=== PATIENT | female | born 1985 | race Caucasian/White ===

== ENCOUNTER 2018-06-18 12:24 | Emergency (ER) | payer MEDICAID, SELFPAY ==
[2018-06-18] VITALS (8 sets, daily range): BP systolic 103–109; BP diastolic 69–79; PULSE 67–84; RESP 13–17; TEMP 36.8; O2SAT 98–100
--- NOTE | 2018-06-18 12:47 | ED.GENADUL_ITS ---
Discharge Plan Disposition Patient Disposition: HOME Condition: Improving Discharge Details Chief Complaint: Chest Pain Clinical Impression: Pneumothorax on left Primary Care Provider: Alexey Madison ED Provider: Renzo Hamilton Home Meds and New Rx's Prescriptions: No Action No Known Home Meds RF: 0 Discharge Instructions Instructions: Spontaneous Pneumothorax (ED) Additional Instructions: Return if you develop difficulty breathing, worsening pain, or any other acute concerns. May use ibuprofen 600 mg every 8 hours as needed for pain. Follow-up with Dr. Dixon in clinic tomorrow at 2 PM for recheck. The office number is [phone] Medical Decision Making 32-year-old female states that she had the abrupt onset of left-sided chest discomfort while at rest today. She will not recent travel to [place] and [facility]. She arrives with normal vital signs, in moderate distress and anxious. Screening EKG is unremarkable. Differential diagnosis would include acute coronary syndrome, pulmonary embolism, as well as pleurisy as I question friction rub present on exam. Placed, labs obtained, patient referred for chest x-ray. Ketorolac ordered which she subsequently declined as her pain nearly completely resolved on its own. Labs reveal unremarkable troponin, d-dimer, CBC and chemistries. Chest x-ray reveals a discrete left apical pneumothorax without other findings. Case discussed with on-call surgeon, Dr Puentes who will see the patient in followup tomorrow. in clinic at 2pm. Discussed return precautions with the patient and her mother prior to discharge. Lab Data Lab results reviewed: Yes I reviewed the patient's lab results. Laboratory Results - last 24 hr 06/18/18 06/18/18 06/18/18 12:55 12:55 12:55 WBC 7.96 RBC 4.78 Hgb 14.6 Hct 43.5 MCV 91.0 MCH 30.5 MCHC 33.6 RDW 12.5 Plt Count 245 MPV 9.1 Immature Gran % 0.3 Neutrophils % 72.8 Lymphocytes % 22.1 Monocytes % 4.1 Eosinophils % 0.3 Basophils % 0.4 Absolute Neutrophils 5.80 Absolute Lymphocytes 1.76 Absolute Monocytes 0.33 Absolute Eosinophils 0.02 Absolute Basophils 0.03 D-Dimer 148 Sodium 138 Potassium 3.9 Chloride 100 Carbon Dioxide 29.2 Anion Gap 8.8 BUN 10 Creatinine 0.76 Estimated GFR/1.73 m2 >= 60.00 Glucose 115 H Calcium 9.2 Total Bilirubin 0.4 AST 21 ALT 24 Alkaline Phosphatase 63 Troponin I < 0.02 Total Protein 7.5 Albumin 4.0 ECG Data Attestation: I personally reviewed and interpreted this ECG (s) as follows: Interpretation: Normal sinus rhythm, rate of 75, QRS is narrow, no ST segment elevation present HPI General Mode of arrival: ambulatory . Date/Time Provider Initiated Documentation: 06/18/18 12:28 . Limitations to Documentation: no limitations . Information obtained by: patient and family . History of Present Illness 32 year old F presents to the emergency department with the chief complaint of Left-sided chest pain, described as moderate, Quality is described as burning, and is localized to the chest and left. Patient neck. Patient started experiencing this minute(s) and it has been other (Improving). No relieving factors improve symptom(s), Movement worsens symptoms . Patient notes denies fever/chills. Related Data Home Medications Medication Instructions Recorded Confirmed Unknown [No Known Home Meds] 02/02/18 06/18/18 Allergies Allergy/AdvReac Type Severity Reaction Status Date / Time acetaminophen Allergy Severe Hives, Unverified 06/18/18 12:34 difficulty breathing clindamycin Allergy Severe Hives and Unverified 06/18/18 12:34 diffficulty breathing lidocaine Allergy Flushed , Unverified 06/18/18 12:34 tingling General Stated Complaint: Chest Pain KAT: 2 Review of Systems Review of Systems 8 systems reviewed and otherwise negative PFSH 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 Biopsy of breast Medical History 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 Social History Smoking/Tobacco Use Status: Current every day Surgical History Biopsy of breast Social History Smoking/Tobacco Use Status: Current every day Exam Narrative Exam Narrative: GEN: awake, alert, oriented 3. Pleasant, well groomed, interactive; somewhat anxious HEAD: Normocephalic, atraumatic ENT: Mucous membranes moist, oropharynx unremarkable, External ear exam unremarkable EYES: PERRL, EOMI NECK: Full ROM, no CLARISA, no menigismus CHEST/RESP: Nontender, clear to auscultation bilateral, no wheeze/rhonchi/rales , Question friction Rub L anterior chest wall CARDIOVASCULAR: RRR, no murmur, rub roopa. 2+ Rad pulse bilateral ABDOMEN: Soft, nontender, no mass. +Bowel sounds EXT: Full ROM, no edema, no rash, no cords Neuro: Grossly normal neurologic exam, conversant, interactive. Psych: Speech fluent, thoughts congruent, affect anxious Course Vital Signs Temperature 36.8 C 06/18/18 12:32 Pulse 84 06/18/18 12:32 Respiratory Rate 15 06/18/18 12:32 Blood Pressure 109/69 06/18/18 12:32 Pulse Oximetry 100 06/18/18 12:32 Temperature 36.8 C 06/18/18 12:32 Temperature Source Temporal Artery Scan 06/18/18 12:32 Pulse 84 06/18/18 12:32 Respiratory Rate 15 06/18/18 12:32 Respiratory Effort Non-Labored 06/18/18 12:32 Blood Pressure 109/69 06/18/18 12:32 Pulse Oximetry 100 06/18/18 12:32 Oxygen Delivery Method Room Air 06/18/18 12:32 Oxygen Flow Rate 0 06/18/18 12:32 Pain Level 8 06/18/18 12:32
[2018-06-18 13:10] LABS: Abs Immature Grans 0.02 k/cumm (0.0-0.09); Absolute Basophil Count 0.03 k/cumm (0.0-0.2); Absolute Eosinophil Count 0.02 k/cumm (0.0-0.7); Absolute Lymphocyte Count 1.76 k/cumm (1.2-3.4); Absolute Monocyte Count 0.33 k/cumm (0.11-0.7); Basophils % 0.4; Eosinophils % 0.3; HCT 43.5 % (36.0-46.0); HGB 14.6 g/dL (12.0-15.5); Immature Grans % 0.3; Lymphocytes % 22.1; Mean Corp. HGB Concentration 33.6 g/dL (32.0-36.0); Mean Corpuscular Hemoglobin 30.5 pg (27.0-33.0); Mean Platelet Volume 9.1 fL (8.0-11.0); Monocytes % 4.1; Neutrophils % 72.8; Platelet Count 245 x1000/uL (130-400); RBC 4.78 m/cumm (4.00-5.20); RBC Distribution Width 12.5 % (11.7-14.6); White Blood Cell Count 7.96 k/cumm (4.4-10.8)
[2018-06-18 13:27] LABS: ALT 24 U/L (12-78); AST 21 U/L (15-37); Alkaline Phosphatase 63 U/L (46-116); Anion Gap 8.8 mmol/L (3-11); BUN 10 mg/dL (7-18); Bilirubin, Total 0.4 mg/dL (0.2-1.0); CO2 29.2 mmol/L (21.0-32.0); CREATININE 0.76 mg/dL (0.55-1.02); Calcium 9.2 mg/dL (8.5-10.1); Chloride 100 mmol/L (98-107); Glucose 115 mg/dL (70-100); Potassium 3.9 mmol/L (3.5-5.1); Sodium 138 mmol/L (136-145); Total Protein 7.5 g/dL (6.4-8.2); Troponin I < 0.02 ng/mL (0.00-0.06)
--- NOTE | 2018-06-18 13:31 | DI.RAD_ITS ---
SYMPTOMS/DIAGNOSIS: LT CHEST PAIN PA AND LATERAL CHEST: The cardiac and mediastinal contours have a normal appearance. The lungs are well inflated and clear. No infiltrate or effusion is seen. There is a tiny left apical pneumothorax. No rib or spine fracture is seen. IMPRESSION: Tiny left apical pneumothorax.
[2018-06-18 13:41] LABS: D-Dimer 148 ng/mlFEU (<500)
[2018-06-18] MEDS: Normal Saline 1,000 ML 1000 ML IV (13:50)
== END 2018-06-18 15:18 | disposition home or self-care (01) ==
LOC: ER 14:31
PROVIDERS: Emergency Provider Emergency Medicine; PCP General Practice
DX: J93.83 Other pneumothorax (principal)
CPT/HCPCS: 36415; 80053; 93005; 96365; 99285; 71046; 84484; 85025; 85379; 93010; 99284

== ENCOUNTER 2018-11-22 08:42 | Emergency (ER) | payer MEDICAID, SELFPAY ==
[2018-11-22 08:49] VITALS: BP 115/76; PULSE 87; RESP 20; TEMP 36.8; O2SAT 99
--- NOTE | 2018-11-22 09:29 | ED.GENADUL_ITS ---
Discharge Plan Disposition Patient Disposition: HOME Condition: Improving Discharge Details Chief Complaint: EyeProblem Clinical Impression: Abrasion, corneal Primary Care Provider: Alexey Madison ED Provider: Vira Sotomayor Home Meds and New Rx's Prescriptions: No Action No Known Home Meds RF: 0 Discharge Instructions Instructions: Erythromycin (Into the eye), Corneal Abrasion (ED) Additional Instructions: Apply erythromycin eye ointment to bilateral eyes 4 times daily. You have an appointment with [facility] tomorrow morning at 10:40AM in [facility]. If you develop fever/chills, increased pain, change in vision or other new/worsening symptoms please seek care urgently once again Referrals: Alexey Madison MD [Primary Care Provider] - Medical Decision Making This is a pleasant 33-year-old female presenting today with bilateral eye pain. She reports that symptoms began yesterday. Patient does typically wear contacts. Currently wearing corrective lenses. States she is been tearing, having eye burning. Was concerned that she may have a foreign body in the eye but does not know of any alston or exposures. 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 Typically changed her contacts monthly. Is been set. She denies any fevers or chills. States she has had tearing but no visual changes with her corrective lenses on. Does not have pain with movement of the eye. No headaches. On exam, patient's eyes are slightly injected. Tetracaine was for discomfort, patient reports feeling much improved. On exam, she does have a small punctate areas of uptake. 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 Advised to continue to abstain from a contact will be discharged home with erythromycin ointment and follow-up with [facility] care. Patient given strict return precautions. All other questions and concerns were addressed and she is in agreement with this plan. HPI General Mode of arrival: ambulatory . Date/Time Provider Initiated Documentation: 11/22/18 09:12 . Limitations to Documentation: no limitations . Information obtained by: patient and RN notes reviewed . History of Present Illness 33 year old F presents to the emergency department with the chief complaint of bilateral eye pain, described as severe, with intensity rated at 10. Quality is described as burning, and is localized to the eyes. Patient reports no radiation. Patient started experiencing this day(s) (1) and it has been constant. No relieving factors improve symptom(s), Other factors that worsen symptoms (wearing contacts) . Patient notes no other symptoms.. Patient did receive the following treatments prior to arrival, none Related Data Home Medications Medication Instructions Recorded Confirmed Unknown [No Known Home Meds] 02/02/18 11/20/18 Allergies Allergy/AdvReac Type Severity Reaction Status Date / Time acetaminophen Allergy Severe Hives, Unverified 11/20/18 14:02 difficulty breathing clindamycin Allergy Severe Hives and Unverified 11/20/18 14:02 diffficulty breathing lidocaine Allergy Flushed , Unverified 11/20/18 14:02 tingling General Stated Complaint: EyeProblem KAT: 4 Review of Systems Constitutional Reports as per HPI, Denies chills, Denies fever(s) and Denies headache(s) Eyes Reports as per HPI, Denies change in vision, Denies decreased night vision, Denies diplopia, Reports eye discharge (tearing), Denies dry eyes, Reports irritation, Reports itchy eyes, Denies loss of peripheral vision, Denies loss of vision, Reports eye pain, Reports requires corrective lenses, Denies seeing flashes, Reports photophobia, Denies spots in vision and Denies tunnel vision ENT Reports as per HPI and Denies headache(s) Cardiovascular Reports as per HPI, Denies chest pain and Denies dyspnea Respiratory Reports as per HPI and Denies dyspnea Gastrointestinal Reports as per HPI, Denies abdominal pain, Denies change in bowel habits, Denies nausea and Denies vomiting Integumentary/Breasts Reports as per HPI and Denies rash Neurologic Reports as per HPI, Denies headache(s) and Denies loss of vision Allergic/Immunologic Reports itchy eyes [facility] Medical History Spontaneous pneumothorax (Acute) 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 Surgical History Biopsy of breast Social History Smoking/Tobacco Use Status: Current every day Alcohol Intake: current Alcohol Intake frequency: a few times a week Drug use: Never Substance use type: does not use Household members: children Housing: house Number of Children: 2 What is your relationship status?: Panel score (0-1 are the most socially isolated patients): 0 Do you feel safe in your relationship?: Yes Exam Const General: cooperative, healthy appearing, comfortable, no acute distress, well developed and well groomed Nutritional Appearance: average body habitus and well nourished Orientation: alert and awake [facility] Head: normal to inspection, normocephalic and atraumatic Ears: hearing grossly normal bilaterally, external ears normal and TM's normal bilaterally General nose exam: external nose normal and nares normal Face and sinus: normal facial exam, sinuses nontender and face symmetric Mouth: oral mucosae normal, lip normal, tongue normal, oropharynx normal and moist mucous membranes Teeth and gingiva: dentition normal Throat: posterior oropharynx normal, tonsils normal and uvula midline Eyes Visual Swann: normal visual swann by confrontation Alignment and Position: alignment normal Periorbital: periorbital findings normal Eyelids: eyelids normal Conjunctivae: conjunctival abnormality bilaterally conjunctival injection Cornea: corneas abnormal bilaterally fluorescein used and abrasion (small punctate lesions noted bilaterally consistent with areas of contacts); no contact lens present, without diffuse punctate uptake and without dendrites present and fluorescein used Pupils: PERRL and normal by confrontation EOM: EOM intact bilaterally Direct ophthalmoscopy: normal light reflex Neck Neck: normal visual inspection, full ROM, no lymphadenopathy and no meningeal signs Resp Effort & Inspection: normal respiratory effort, able to speak in complete sentences and no respiratory distress Auscultation: clear to auscultation bilaterally, no rales, no rhonchi and no wheezes Cardio Rate: regular rate Rhythm: regular rhythm Heart Sounds: S1 normal and S2 normal Skin General skin exam: no rashes or lesions noted Neuro General: alert and awake Cognition: normal cognition Speech: speech normal Gait: normal gait Psych Appearance: grossly normal and well kempt Mental Status: mental status grossly normal Speech and Movement: speech and movement normal Course Vital Signs Temperature 36.8 C 11/22/18 08:49 Pulse 87 11/22/18 08:49 Respiratory Rate 20 11/22/18 08:49 Blood Pressure 115/76 11/22/18 08:49 Pulse Oximetry 99 11/22/18 08:49 Temperature 36.8 C 11/22/18 08:49 Temperature Source Temporal Artery Scan 11/22/18 08:49 Pulse 87 11/22/18 08:49 Respiratory Rate 20 11/22/18 08:49 Respiratory Effort Non-Labored 11/22/18 08:49 Blood Pressure 115/76 11/22/18 08:49 Pulse Oximetry 99 11/22/18 08:49 Pain Level 10 11/22/18 08:49
[2018-11-22] MEDS: Fluorescein STRIPS 100/BOX 1 MG (09:34)
[2018-11-22] MEDS: Tetracaine 0.5% 4 ML BTL ×2 (09:34→09:52)
[2018-11-22] MEDS: Erythromycin Ophth Oint 3.5 GM TUBE OU (09:34)
--- NOTE | 2018-11-22 09:49 | NUR.NOTE ---
patient received tetrcaine bilateral eyes x 1 drop per PA order, then PA examined patient Nursing Note:
[2018-11-22 09:51] VITALS: BP 115/76; PULSE 87; RESP 20; TEMP 36.8; O2SAT 99
== END 2018-11-22 09:51 | disposition home or self-care (01) ==
PROVIDERS: Emergency Provider Physician Assistant; PCP General Practice
DX: S05.01XA Injury of conjunctiva and corneal abrasion without foreign body, right eye, initial encounter (principal); S05.02XA Injury of conjunctiva and corneal abrasion without foreign body, left eye, initial encounter; X58.XXXA Exposure to other specified factors, initial encounter
CPT/HCPCS: 99283

== ENCOUNTER 2018-11-23 07:59 | Outpatient (CLI) | payer MEDICAID, SELFPAY ==
--- NOTE | 2018-11-23 08:59 | DI.CT_ITS ---
SYMPTOMS/DIAGNOSIS: INTERMITTENT CHEST PAIN, H/O LT PTX, R07.89, HX DISEASE OF RESPIRATORY SYSTEM CT OF THE CHEST: Comparison is made with chest x-ray dated . Post contrast exam was performed. The heart size is normal. No pleural or pericardial effusions are seen. There is no evidence of pneumothorax. There is minimal apical thickening. There is no evidence of mass, adenopathy or pulmonary nodules. There is no evidence of bronchiectasis. There are no significant emphysematous changes or interstitial changes. The visualized portions of the upper abdomen are unremarkable. The thyroid appears normal. IMPRESSION: Minimal apical thickening, otherwise negative.
[2018-11-23] MEDS: Omnipaque 350 MG/ML 100 ML BTL IJ (09:42)
== END 2018-11-23 08:19 ==
PROVIDERS: PCP General Practice; Visit Provider Surgery
DX: R07.89 Other chest pain (principal); Z87.09 Personal history of other diseases of the respiratory system
CPT/HCPCS: 71260; J3490

== ENCOUNTER 2019-01-02 11:59 | Outpatient (REF) | payer MEDICAID, SELFPAY ==
[2019-01-02 13:46] LABS: Anion Gap 8.9 mmol/L (3-11); BUN 11 mg/dL (7-18); CO2 27.1 mmol/L (21.0-32.0); CREATININE 0.82 mg/dL (0.55-1.02); Calcium 9.4 mg/dL (8.5-10.1); Calculated LDL 102 mg/dL; Chloride 103 mmol/L (98-107); Cholesterol 184 mg/dL (50-200); Glucose 93 mg/dL (70-100); HDL Cholesterol 61 mg/dL (40-60); Potassium 4.6 mmol/L (3.5-5.1); Sodium 139 mmol/L (136-145); Triglyceride 107 mg/dL (30-150)
== END 2019-01-02 12:19 ==
LOC: NCHCN 11:59
PROVIDERS: PCP General Practice; Visit Provider Specialist/Technologist Athletic Trainer
DX: Z13.220 Encounter for screening for lipoid disorders (principal); Z13.228 Encounter for screening for other metabolic disorders
CPT/HCPCS: 80048; 80061; 83721

== ENCOUNTER 2019-07-08 21:15 | Emergency (ER) | payer MEDICAID, SELFPAY ==
[2019-07-08 21:23] VITALS: BP 128/78; PULSE 110; RESP 16; TEMP 36.8; O2SAT 99
--- NOTE | 2019-07-08 21:32 | ED.GENADUL_ITS ---
Discharge Plan Disposition Patient Disposition: HOME Condition: Stable Discharge Details Chief Complaint: SOB Clinical Impression: URI (upper respiratory infection) Primary Care Provider: Carlos Jeffery ED Provider: Balaji Hogan Home Meds and New Rx's Prescriptions: New prednisone 20 mg tablet 60 mg PO DAILY 4 Days Qty: 12 RF: 0 Discharge Instructions Instructions: Upper Respiratory Infection (ED) Additional Instructions: I placed you on our follow up list to get established with a new primary care provider you can take 1000mg tylenol and 600mg ibuprofen every 6 hours as needed if you feel more ill, have high fevers or worsening pain return to the emergency department Medical Decision Making 33 yo female comes in with cough and pain with deep inspirations similar to when she had a ptx in 2018 that was treated conservatively. Denies fevers, recent travel, vomit, and only has pain when coughing and deep inspirations in anterior left upper chest. No pain with exertion, radiation of pain. Suspect viral pneumonitis vs pna, will obtain cxr to eval for this ptx. Has no evidence of dvt and symptoms seem more infectious, no hypoxia so doubt PE at this time and symptoms are not typical of acs, do not feel ecg/troponin indicated. No tearing back pain to suggest dissection xray shows no ptx or pna, does have nonspecific hyperinflation that's likely secondary to uri. Will try treating her cough with inhaler and prednisone given her smoking hx could have some reactive airway disease. Will have her f/u with pcp within a week and return precautions given Differential Diagnosis Differential Diagnosis: ptx, pna, uri Imaging Data Radiologic Study: Attestation: I personally reviewed and interpreted this imaging study as follows: Imaging: X-Ray Radiologist's impression: IMPRESSION: 1. Mild hyperinflation of a nonspecific appearance which could be secondary to an upper respiratory infection or reactive airway disease. 2. No evidence of pneumothorax or pleural fluid accumulation. 3. No lung infiltrates. Lab Data Lab results reviewed: Yes I reviewed the patient's lab results. HPI General Mode of arrival: ambulatory . Date/Time Provider Initiated Documentation: 07/08/19 21:26 . Limitations to Documentation: no limitations . Information obtained by: patient . History of Present Illness 33 year old F presents to the emergency department with the chief complaint of cough, described as moderate, and it has been constant. No relieving factors improve symptom(s), No exacerbating factors reported . Patient notes no other symptoms.. Patient did receive the following treatments prior to arriv al, none Related Data Home Medications Medication Instructions Recorded Confirmed prednisone 60 mg PO DAILY 4 Days #12 tab 07/08/19 Previous Rx's Medication Instructions Recorded prednisone 60 mg PO DAILY 4 Days #12 tab 07/08/19 Allergies Allergy/AdvReac Type Severity Reaction Status Date / Time acetaminophen Allergy Severe Hives, Unverified 07/08/19 21:26 difficulty breathing clindamycin Allergy Severe Hives and Unverified 07/08/19 21:26 diffficulty breathing lidocaine Allergy Flushed , Unverified 07/08/19 21:26 tingling General Stated Complaint: SOB KAT: 3 Review of Systems All systems reviewed & are unremarkable except as noted in HPI and below Constitutional Constitutional: Denies chills, Denies fever(s) and Denies weakness Gastrointestinal Gastrointestinal: Denies abdominal pain, Denies nausea and Denies vomiting Musculoskeletal Musculoskeletal: Denies joint swelling Neurologic Neurologic: Denies weakness Endocrine Endocrine: Denies heat intolerance [facility] Social History Smoking/Tobacco Use Status: Current every day Alcohol Intake: current Alcohol Intake frequency: 0-2 drinks per day Drug use: Never Substance use type: does not use Household members: children Housing: house Number of Children: 2 What is your relationship status?: Panel score (0-1 are the most socially isolated patients): 0 Do you feel safe at home: Yes Do you feel safe in your relationship?: Yes Exam Const General: no acute distress Orientation: alert HENMT Head: normal to inspection Ears: external ears normal General nose exam: external nose normal Mouth: moist mucous membranes Eyes General: appearance normal, both eyes and all related structures Neck Neck: normal visual inspection Resp Effort & Inspection: normal respiratory effort and able to speak in complete sentences Cardio Rate: regular rate Skin General skin exam: no rashes or lesions noted Neuro General: alert and oriented x3 Extrem General: normal to inspection Psych Mental Status: mental status grossly normal Course Vital Signs Vital signs: Vital Signs Temperature 36.8 C 07/08/19 21:23 Pulse 110 H 07/08/19 21:23 Respiratory Rate 16 07/08/19 21:23 Blood Pressure 128/78 07/08/19 21:23 Pulse Oximetry 99 07/08/19 21:23 Temperature 36.8 C 07/08/19 21:23 Temperature Source Temporal Artery Scan 07/08/19 21:23 Pulse 110 H 07/08/19 21:23 Respiratory Rate 16 07/08/19 21:23 Respiratory Effort Non-Labored 07/08/19 21:23 Respiratory Depth Shallow 07/08/19 21:23 Respiratory Pattern Normal 07/08/19 21:23 Blood Pressure 128/78 07/08/19 21:23 Pulse Oximetry 99 07/08/19 21:23 Oxygen Delivery Method Room Air 07/08/19 21:23 Oxygen Flow Rate 0 07/08/19 21:23 Pain Level 0 07/08/19 21:23
--- NOTE | 2019-07-08 21:43 | DI.RAD_ITS ---
EXAM: XR CHEST 2V PA LATERAL CLINICAL HISTORY: shortness of breath, ?ptx TECHNIQUE: COMPARISON: XR CHEST 2V PA LATERAL from 06/18/2018 FINDINGS: The heart is not enlarged. There is slight prominence perihilar markings. No evidence of focal cons olidation. No pleural effusion. No pneumothorax. IMPRESSION: No evidence of acute process
--- NOTE | 2019-07-08 22:02 | DI.VRAD_ITS ---
PROCEDURE INFORMATION: Exam: XR Chest, 2 Views Exam date and time: 07/08/2019 9:45 PM Age: 33 years old Clinical indication: Shortness of breath; Patient HX: SOB; Additional info: ? Pnx TECHNIQUE: Imaging protocol: XR of the chest Views: 2 views. COMPARISON: CR XR CHEST 2V PA LATERAL 06/18/2018 2:05 PM FINDINGS: Lungs: Mild hyperinflation suggesting reactive airway disease or an upper respiratory infection. Pleural space: The pleural spaces are clear bilaterally. No pleural effusion. No pneumothorax. Heart/Mediastinum: Unremarkable. No cardiomegaly. Bones/joints: Unremarkable. IMPRESSION: 1. Mild hyperinflation of a nonspecific appearance which could be secondary to an upper respiratory infection or reactive airway disease. 2. No evidence of pneumothorax or pleural fluid accumulation. 3. No lung infiltrates. Dictated and Authenticated by: Aris Ralph MD. Ordering:RUDY Carpio MD
[2019-07-08] MEDS: Albuterol HFA 8 GM 60 PUFF INH IH (22:18)
[2019-07-08] MEDS: Inhaler, Assist Device 1 EACH MC (22:18)
[2019-07-08] MEDS: predniSONE 20 MG TAB 60 MG PO (22:18)
== END 2019-07-08 22:20 | disposition home or self-care (01) ==
PROVIDERS: Emergency Provider Emergency Medicine; PCP Internal Medicine
DX: J06.9 Acute upper respiratory infection, unspecified (principal); R06.00 Dyspnea, unspecified; F17.210 Nicotine dependence, cigarettes, uncomplicated
CPT/HCPCS: 87449; 99283; 71046; 99284; J7512

== ENCOUNTER 2019-12-31 11:13 | Outpatient (CLI) | payer MEDICAID, SELFPAY ==
[2020-01-03 00:17] LABS: SARS-CoV-2 RNA Undetected (Undetected); SARS-CoV-2 Specimen Source Nasopharynx
== END 2019-12-31 11:33 ==
PROVIDERS: PCP Internal Medicine; Visit Provider Internal Medicine
DX: Z11.59 Encounter for screening for other viral diseases (principal)
CPT/HCPCS: U0003

== ENCOUNTER 2020-01-17 08:27 | Outpatient (CLI) | payer MEDICAID, SELFPAY ==
[2020-01-19 18:14] LABS: COVID-19 RT-PCR Result NEGATIVE (Negative)
== END 2020-01-17 08:47 ==
PROVIDERS: PCP Internal Medicine; Visit Provider Internal Medicine
DX: J45.909 Unspecified asthma, uncomplicated (principal)
CPT/HCPCS: U0003

== ENCOUNTER 2020-01-20 15:03 | Outpatient (CLI) | payer MEDICAID, SELFPAY ==
[2020-01-20] MEDS: Inhaler, Assist Device 1 EACH MC (17:39)
[2020-01-20] MEDS: Albuterol HFA 18 GM 200 PUFF INH IH (17:39)
[2020-01-20] MEDS: Methacholine 100 MG VIAL IH (17:39)
--- NOTE | 2020-01-25 16:20 | W.PFT ---
Date of service: 01/20/20 Time of Service: 15:15 Pulmonary Function Test Result Interpretation Spirometry: Spirometry shows mild obstructive airways disease with no significant bronchodilator response. Impression Mild obstructive airways disease with no significant bronchodilator response. Clinical correlation recommended Clinical Correlation therefore is recommended. Methacholine Challnege Test Date of Service Date of Service: 01/20/2020 Note Methacholine challenge testing was carried out after mild obstructive airways disease seen on baseline spirometry up to methacholine concentration of 16 mg/mL. The patient had a 16% drop in FEV1 after methacholine administration at 16 mg/mL. There was a gradual decline in FEV1 throughout the study. Impression Based on ATS guidelines this is a negative methacholine challenge however there was gradual decline in FEV1 and there was a fairly substantial, though not significant drop in FEV1 by methacholine concentration of 16 mg/mL. Clinical correlation recommended.
== END 2020-01-20 15:23 ==
PROVIDERS: PCP Internal Medicine; Visit Provider Internal Medicine
DX: J44.9 Chronic obstructive pulmonary disease, unspecified (principal); J45.909 Unspecified asthma, uncomplicated
CPT/HCPCS: 94060; 95070; J7674

== ENCOUNTER 2020-01-23 09:22 | Emergency (ER) | payer MEDICAID, SELFPAY ==
--- NOTE | 2020-01-23 09:15 | DI.RAD_ITS ---
EXAM: XR ELBOW LT COMPLETE CLINICAL HISTORY: fal from 3 foot ladder yesterday TECHNIQUE: COMPARISON: No exams were available for comparison FINDINGS: Three views were obtained. There is a large joint effusion. No fracture identified on films obtaine d, however the large joint effusion raises the possibility of an occult nondisplaced intra-articular fracture. Additional evaluation with follow-up films may be obtained, CT may also be considered if clinically i ndicated. IMPRESSION:
[2020-01-23 09:26] VITALS: BP 110/90; PULSE 83; RESP 16; TEMP 36.8; O2SAT 98
--- NOTE | 2020-01-23 09:28 | ED.GENADUL_ITS ---
Discharge Plan Disposition Patient Disposition: HOME Condition: Stable Discharge Details Chief Complaint: Orthopedic Clinical Impression: Elbow fracture, left Primary Care Provider: Carlos Jeffery ED Provider: Uriel Montes Home Meds and New Rx's Prescriptions: Continued fluticasone propion-salmeterol 500-50 mcg/dose blister with device INHALATION RF: 0 albuterol sulfate [ProAir HFA] 90 mcg/actuation HFA aerosol inhaler INHALATION RF: 0 Discharge Instructions Instructions: Elbow Fracture (ED) Additional Instructions: Unable to physically see a fracture on the x-ray but the fluid that is visualized is highly consistent with a subtle fracture. Wear sling until reevaluation with orthopedics sometime next week. Rest, elevate, cool compresses every 2 hours for 20 minutes. [id number] Tylenol and/or Motrin as directed for discomfort. Please watch for new or worsening symptoms and return to the ER for any concerns. I have given you the name and number of Dr. León, contact his office later today or tomorrow. Referrals: Helder León MD [ [facility] STAFF PHYSICIAN] - Medical Decision Making Patient who is right-hand dominant presents with a left elbow injury that occurred yesterday after falling off a ladder. She did not strike her head. I nitially had mild back pain but that has subsided completely. Left elbow is with diffuse discomfort, unable to fully extend or flex. Neuro, vascular, tendon intact. Will obtain x-ray. X-ray of the left elbow read by me as positive fat pad sign. I spoke with radiology who reports that there is a large joint effusion, no fracture identified on films obtained however the large joint effusion raises the possibility of an occult nondisplaced intra-articular fracture. I discussed x-ray findings, and high suspicion of fracture with patient. She was placed into a left arm sling. She was also placed on the orthopedic list to help expedite outpatient care. Patient will wear sling until orthopedic follow- up. Discussed resting, elevating, cool compresses, [id number] Tylenol and/or Motrin. Patient has no additional questions or concerns. Medical Records Medical records reviewed: Yes I reviewed the patient's medical records. HPI General Mode of arrival: ambulatory . Date/Time Provider Initiated Documentation: 01/23/20 09:23 . Limitations to Documentation: no limitations . Information obtained by: patient . HPI Narrative: This is a 34-year-old female who is right-hand dominant presenting for evaluation of a left arm injury that occurred yesterday afternoon. She reports that she was working around her house, she was standing on her ladder, her feet approximately 3 feet off the ground. She lost her balance falling down to her left arm. She reports that her primary concern is that of moderate elbow pain, worse with movement. Denies striking her head, loss of consciousness, headache, neck pain, chest pain, shortness of breath, numbness, tingling, weakness. She reports that at the time of the fall she did have mild lower back pain but that has resolved completely. She has not taken any medications [id number] for her symptoms. Related Data Home Medications Medication Instructions Recorded Confirmed albuterol sulfate [ProAir HFA] INHALATION 01/23/20 01/23/20 fluticasone propion-salmeterol INHALATION 01/23/20 01/23/20 Allergies Allergy/AdvReac Type Severity Reaction Status Date / Time acetaminophen Allergy Severe Hives, Unverified 01/23/20 09:33 difficulty breathing clindamycin Allergy Severe Hives and Unverified 01/23/20 09:33 diffficulty breathing General KAT: 3 Review of Systems Constitutional Constitutional: Denies headache(s) and Denies weakness Eyes Eyes: Denies change in vision ENT Ears, Nose, Mouth, and Throat: Denies headache(s) and Denies neck pain Cardiovascular Cardiovascular: Denies chest pain Gastrointestinal Gastrointestinal: Denies nausea and Denies vomiting Musculoskeletal Musculoskeletal: Reports back pain (Resolved), Denies neck pain, Denies numbness and Denies tingling Neurologic Neurologic: Denies headache(s), Denies numbness, Denies tingling and Denies weakness [facility] Medical History 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 Spontaneous pneumothorax (Acute) left side Surgical History Biopsy of breast Status post surgical removal of both fallopian tubes (Acute) Social History Smoking/Tobacco Use Status: Current every day Alcohol Intake: current Alcohol Intake frequency: a few times a week Alcohol type: beer and wine Drug use: Occasionally Substance use type: does not use and marijuana Household members: children Housing: house Number of Children: 2 What is your relationship status?: Panel score (0-1 are the most socially isolated patients): 0 Do you feel safe at home: Yes Do you feel safe in your relationship?: Yes Exam Const General: cooperative, healthy appearing, comfortable and no acute distress Orientation: alert, awake and oriented x3 HENMT Head: normal to inspection, normocephalic and atraumatic Mouth: moist mucous membranes Eyes Conjunctivae: conjunctivae normal Sclera: sclerae normal Neck Neck: normal visual inspection, full ROM, trachea midline, supple and nontender Resp Effort & Inspection: normal respiratory effort and able to speak in complete sentences Cardio Rate: regular rate Rhythm: regular rhythm Back/Spine/Pelvis Back: No back tenderness Skin General skin exam: no rashes or lesions noted Neuro General: patient alert, patient awake, patient oriented x3, moves all extremities and no focal motor deficits Speech: speech normal Gait: normal gait Motor: muscle tone normal throughout and strength 5/5 throughout Sensory Exam: no sensory deficits noted Extrem Right upper extremity: normal to inspection, full ROM and normal capillary refi ll Left upper extremity: elbow/forearm Details: tenderness Location: of the olecranon and of the radial head and abnormal ROM Details: held in an abnormal fashion Details: in flexion and with range as follows (Unable to fully extend or flex); no deformity Right lower extremity: normal to inspection and full ROM Left lower extremity: normal to inspection and full ROM Psych Appearance: grossly normal Mental Status: mental status grossly normal
== END 2020-01-23 10:13 | disposition home or self-care (01) ==
PROVIDERS: Emergency Provider Physician Assistant; PCP Internal Medicine
DX: M25.422 Effusion, left elbow (principal); S42.402A Unspecified fracture of lower end of left humerus, initial encounter for closed fracture; W10.8XXA Fall (on) (from) other stairs and steps, initial encounter
CPT/HCPCS: 99283; 73080; 99284; L3650

== ENCOUNTER 2020-04-10 19:14 | Outpatient (REF) | payer MEDICAID, SELFPAY ==
[2020-04-13 22:05] LABS: Patient Race White; SARS-CoV-2 RNA Undetected (Undetected); SARS-CoV-2 Specimen Source Nasal
== END 2020-04-10 19:34 ==
LOC: NCHCN 19:14
PROVIDERS: PCP Internal Medicine; Visit Provider Nurse Practitioner Family
DX: Z20.828 Contact with and (suspected) exposure to other viral communicable diseases (principal)
CPT/HCPCS: U0003

== ENCOUNTER 2020-05-04 15:09 | Emergency (ER) | payer MEDICAID, SELFPAY ==
[2020-05-04 15:20] VITALS: BP 118/81; PULSE 85; RESP 16; TEMP 36.6; O2SAT 98
--- NOTE | 2020-05-04 15:30 | DI.RAD_ITS ---
EXAM: XR HAND RT COMPLETE CLINICAL HISTORY: table saw fel onto hand TECHNIQUE: COMPARISON: CR,XR XR WRIST RT COMPLETE from 05/04/2020 FINDINGS: Three views of the wrist and three views of the hand were obtained. Carpal alignment appears within normal limits. There is no evidence of a fracture or dislocation of the hand or wrist. IMPRESSION: RADIATION DOSE DELIVERED: Total DLP
--- NOTE | 2020-05-04 15:32 | ED.GENADUL_ITS ---
Discharge Plan Disposition Patient Disposition: HOME Condition: Good Discharge Details Clinical Impression: Abrasion, Contusion of hand Primary Care Provider: Carlos Jeffery ED Provider: Vira Sotomayor Home Meds and New Rx's Prescriptions: Continued fluticasone propion-salmeterol 500-50 mcg/dose blister with device INHALATION RF: 0 albuterol sulfate [ProAir HFA] 90 mcg/actuation HFA aerosol inhaler INHALATION RF: 0 epinephrine 0.3 mg/0.3 mL auto-injector RF: 0 Discharge Instructions Instructions: Contusion in Adults (ED) Additional Instructions: Your imaging is reassuring today, we do not see any evidence of fracture. Please encourage rest, ice, elevation. Tylenol and/or ibuprofen as needed for discomfort. Please monitor wound for signs infection including redness, warmth, drainage, increased pain, fever/chills. If you develop these or other new/worsening symptoms please seek care urgently once again. Please continue to tape your fingers to help with discomfort. Fede wrap to help with swelling. Please follow-up with your primary care in the next 1 to 2 weeks for reevaluation if symptoms not completely improved. Referrals: Carlos Jeffery MD [Primary Care Provider] - Discharge Data Discharge Date/Time-TO BE ENTERED AT DEPARTURE: 05/04/20 16:53 Medical Decision Making <SHERIF Simeon - Last Filed: 05/05/20 16:09> 34-year-old female, [id number], presents with injury status post dropping a table saw on her hand yesterday. Clinically she appears well, no acute distress. She is able to feel palpation of her third and fourth digit but reports it feels altered. Vascular and tendon intact. No clinical signs of cellulitis. Will obtain x-ray of the right hand and wrist and reassess. Tetanus up-to-date, no need for booster today Medical Records Medical records reviewed: Yes I reviewed the patient's medical records. <SHERIF Sevilla - Last Filed: 05/04/20 16:45> Care transition myself and Ovi Montes PA-C with imaging pending. Please see his initial note regarding history, presentation and exam. X-ray reviewed by radiologist: FINDINGS: Bones/joints: No acute fracture, subluxation or dislocation. Soft tissues: No evidence for soft tissue injury. IMPRESSION: 1. No evidence for acute injury to the wrist. FINDINGS: Bones/joints: No acute fracture, subluxation, or dislocation. Soft tissues: No radiographic evidence of soft tissue injury. IMPRESSION: 1. No acute fracture or other injury. Discussed these findings with the patient. She has no pain over the snuffbox. No pain with axial thumb loading. She has good range of motion patient states that she denies associated pain in the middle finger. We will amilcar tape the middle and ring finger. Will place patient on hand swelling. Encourage rest, ice, elevation. Tylenol and ibuprofen seen for discomfort. Return precautions were discussed. Advised on signs symptoms of infection of open wound. I will see any evidence of infection at this time. Mother questions or concerns were addressed and she is in agreemtn with this plan. HPI <SHERIF Simeon - Last Filed: 05/05/20 16:09> General Mode of arrival: ambulatory . Date/Time Provider Initiated Documentation: 05/04/20 15:24 . Limitations to Documentation: no limitations . Information obtained by: patient . HPI Narrative: This is a 34-year-old female, [id number], significant past medical history of asthma. She states yesterday while working at her house on a project she accidentally had a table saw dropped onto her hand and wrist. Pain at that time was mild to moderate however since that time the pain has gotten worse, now associated with swelling, bruising, tingling to her third and fourth digits. She denies any other injury. She did sustain an abrasion to her wrist but her tetanus status is up-to-date. She denies any pain that radiates into her forearm or elbow. Related Data Home Medications Medication Instructions Recorded Confirmed albuterol sulfate [ProAir HFA] INHALATION 01/23/20 01/29/20 fluticasone propion-salmeterol INHALATION 01/23/20 01/29/20 epinephrine 05/04/20 Allergies Allergy/AdvReac Type Severity Reaction Status Date / Time acetaminophen Allergy Severe Hives, Unverified 05/04/20 15:22 difficulty breathing clindamycin Allergy Severe Hives and Unverified 05/04/20 15:22 diffficulty breathing General Stated Complaint: Orthopedic KAT: 4 Review of Systems <SHERIF Simeon - Last Filed: 05/05/20 16:09> Constitutional Constitutional: Denies weakness Musculoskeletal Musculoskeletal: Reports arthralgias, Reports joint swelling, Denies numbness, Reports stiffness and Reports tingling Integumentary/Breasts Skin/Breast: Denies erythema Neurologic Neurologic: Denies numbness, Reports tingling and Denies weakness PFSH <SHERIF Simeon - Last Filed: 05/05/20 16:09> Medical History (Updated 05/04/20 @ 16:44 by SHERIF Sevilla) 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 Spontaneous pneumothorax left side Surgical History Biopsy of breast Status post surgical removal of both fallopian tubes Social History Smoking/Tobacco Use Status: Former Tobacco Use Smoking risk assessment performed?: Yes Alcohol Intake: current Alcohol Intake frequency: a few times a week Alcohol type: beer and wine Drug use: Occasionally Substance use type: does not use and marijuana Household members: children Housing: house Number of Children: 2 What is your relationship status?: Panel score (0-1 are the most socially isolated patients): 0 Do you feel safe at home: Yes Do you feel safe in your relationship?: Yes Exam <SHERIF Simeon - Last Filed: 05/05/20 16:09> Const General: cooperative, healthy appearing, comfortable and no acute distress Orientation: alert and awake HENMI Head: normal to inspection, normocephalic and atraumatic Mouth: moist mucous membranes Eyes Conjunctivae: conjunctivae normal Neck Neck: normal visual inspection, trachea midline and supple Resp Effort & Inspection: normal respiratory effort and able to speak in complete sentences Cardio Rate: regular rate Rhythm: regular rhythm Skin General skin exam: no rashes or lesions noted Neuro General: patient alert, patient awake, moves all extremities and no focal motor deficits Sensory Exam: other (Pt with subjective mild altered sensation to right third and fourth digit) Extrem Hand/finger images: 1. Abrasion 2. Abrasion 3. Mild swelling, ecchymosis, tenderness. No obvious deformity. Normal capillary refill. Full range of motion Psych Appearance: grossly normal Mental Status: mental status grossly normal Course <SHERIF Simeon - Last Filed: 10/27/20 16:09> Vital Signs Vital signs: Vital Signs Temperature 36.6 C 05/04/20 15:20 Pulse 85 05/04/20 15:20 Respiratory Rate 16 05/04/20 15:20 Blood Pressure 118/81 05/04/20 15:20 Pulse Oximetry 98 05/04/20 15:20 Temperature 36.6 C 05/04/20 15:20 Temperature Source Skin 05/04/20 15:20 Pulse 85 05/04/20 15:20 Respiratory Rate 16 05/04/20 15:20 Respiratory Effort Non-Labored 05/04/20 15:20 Blood Pressure 118/81 05/04/20 15:20 Blood Pressure Position Sitting 05/04/20 15:20 Pulse Oximetry 98 05/04/20 15:20 Oxygen Delivery Method Room Air 05/04/20 15:20 Oxygen Flow Rate 0 05/04/20 15:20 Pain Level 3 05/04/20 15:20 Sign Out <SHERIF Simeon - Last Filed: 05/05/20 16:09> Sign Out Data: Sign Out Comment: Awaiting x-rays Last updated by Uriel Montes PA at 05/04/20 15:53
--- NOTE | 2020-05-04 16:29 | DI.VRAD_ITS ---
PROCEDURE INFORMATION: Exam: XR Right Hand Exam date and time: 05/04/2020 4:15 PM Age: 34 years old Clinical indication: Injury or trauma; Other: Table saw fell on hand/wrist; Blunt trauma (contusions or hematomas); Right; Patient HX: Table saw fell onto hand TECHNIQUE: Imaging protocol: XR Right hand. Views: 3 or more views. COMPARISON: No relevant prior studies available. FINDINGS: Bones/joints: No acute fracture, subluxation, or dislocation. Soft tissues: No radiographic evidence of soft tissue injury. IMPRESSION: 1. No acute fracture or other injury. Dictated and Authenticated by: Chari Becerril MD. Ordering:BJ Trevino MD
--- NOTE | 2020-05-04 16:30 | DI.VRAD_ITS ---
PROCEDURE INFORMATION: Exam: XR Right Wrist Exam date and time: 05/04/2020 4:17 PM Age: 34 years old Clinical indication: Injury or trauma; Other: Table saw fell onto wrist/hand; Blunt trauma (contusions or hematomas); Right TECHNIQUE: Imaging protocol: XR Right wrist. Views: 3 or more views. COMPARISON: No relevant prior studies available. FINDINGS: Bones/joints: No acute fracture, subluxation or dislocation. Soft tissues: No evidence for soft tissue injury. IMPRESSION: 1. No evidence for acute injury to the wrist. Dictated and Authenticated by: Chari Becerril MD. Ordering:BJ Trevino MD
== END 2020-05-04 16:53 | disposition home or self-care (01) ==
PROVIDERS: Emergency Provider Physician Assistant; PCP Internal Medicine
DX: S60.511A Abrasion of right hand, initial encounter (principal); S60.221A Contusion of right hand, initial encounter; W20.8XXA Other cause of strike by thrown, projected or falling object, initial encounter
CPT/HCPCS: 99283; 73110; 73130

== ENCOUNTER 2021-03-27 00:03 | Emergency (ER) | payer MEDICAID, SELFPAY ==
--- NOTE | 2021-03-27 00:07 | W.ED.GENAD ---
Discharge Plan Disposition Patient Disposition: HOME Condition: Good Discharge Details Clinical Impression: Pelvic pain, Vaginal bleeding Primary Care Provider: Carlos Jeffery ED Provider: Jd Trevizo Home Meds and New Rx's Prescriptions: Continued albuterol sulfate [ProAir HFA] 90 mcg/actuation HFA aerosol inhaler 2 inh INHALATION DAILY PRNRF: 0 epinephrine 0.3 mg/0.3 mL auto-injector RF: 0 sertraline 25 mg tablet 25 mg PO DAILY RF: 0 Discharge Instructions Additional Instructions: Evaluation tonight is reassuring and ultrasound essentially normal. Unclear etiology of pain and bleeding. Recommend follow-up with your [employer] physician at [place], call Monday to make appointment. May use ibuprofen as needed over the weekend. Return to ED if you develop fever, vomiting, new or worsening pain, heavy vaginal bleeding. Medical Decision Making Patient presenting with acute onset of vaginal bleeding and pelvic pain and cramping status post intercourse this evening. No apparent traumatic injury on exam. Tenderness in the right adnexa. Urine and serum tests are negative. CBC is normal. Likely related to ovarian cyst but that does not explain the vaginal bleeding. Annie villanueva our certified medical technician assistant is ultrasound trained. Pelvic ultrasound ordered. Ultrasound shows normal uterus. Normal blood flow to both ovaries. No masses. Few small follicles patient mild free fluid but nothing grossly abnormal. Pain has resolved at this point and patient is splinting on reevaluation. Given her regular/abnormal menstruation pattern over the last couple of months and episode of pain and bleeding tonight will refer to her [employer] physician at [place]. Recommend ibuprofen over the weekend as needed. Contact [employer] Monday for follow-up. Return to ED for fever, vomiting, worsening pain, heavy bleeding, other concerns. Lab Data Lab results reviewed: Yes I reviewed the patient's lab results. HPI General Mode of arrival: ambulatory. Date/Time Provider Initiated Documentation: 03/27/21 00:07. Limitations to Documentation: no limitations. Information obtained by: patient, RN notes reviewed and old records reviewed. HPI Narrative: Patient presents to ED with onset of pelvic pain and vaginal bleeding tonight. Patient was fine this evening. She had intercourse with her boyfriend without issue. Short time after she developed pelvic pain and back pain more right-sided than anywhere else. They come as cramps but do not feel menstrual in nature. She began to have vaginal bleeding. She reports normal menstruation in the past. Some abnormal bleeding over the last couple of months. She is status post salpingectomy bilaterally. She has yearly Pap smears and exams which have been fine. She denies fever, vomiting, diarrhea, abdominal pain, urinary symptoms. She did take ibuprofen before coming in and reports that pain is improving. Related Data Home Medications Medication Instructions Recorded Confirmed albuterol sulfate [ProAir HFA] 2 inh INHALATION DAILY PRN 01/23/20 03/27/21 epinephrine 05/04/20 sertraline 25 mg PO DAILY 03/27/21 03/27/21 Allergies Allergy/AdvReac Type Severity Reaction Status Date / Time acetaminophen Allergy Severe Hives, Unverified 03/27/21 00:13 difficulty breathing clindamycin Allergy Severe Hives and Unverified 03/27/21 00:13 diffficulty breathing General KAT: 4 Review of Systems Narrative: As documented in HPI otherwise negative as below. 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 Spontaneous pneumothorax left side Surgical History Biopsy of breast Status post surgical removal of both fallopian tubes Social History Smoking/Tobacco Use Status: Former Tobacco Use Smoking risk assessment performed?: Yes Alcohol Intake: current Alcohol Intake frequency: a few times a week Alcohol type: beer and wine Drug use: Occasionally Substance use type: does not use and marijuana Household members: children Housing: house Number of Children: 2 What is your relationship status?: Panel score (0-1 are the most socially isolated patients): 0 Do you feel safe at home: Yes Do you feel safe in your relationship?: Yes Exam Narrative Exam Narrative: Const: WDWN female in NAD. HEENT: NC/AT. Normal facial exam. Eyes: Normal conjunctiva and sclera. Neck: Supple. Trachea midline. Lungs: Normal respiratory effort. Cor: RRR. Good radial pulses. GI: Soft and ND. Some tenderness right lower pelvic/suprapubic area. No abdominal tenderness. No RLQ tenderness. : Pelvic exam done with female nurse present. Normal external genitalia. Speculum exam reveals slight bleeding from the cervical os with some blood pooling in the vaginal vault. No evidence of injury to the vagina or cervix. Bimanual exam reveals no CMT. Minimal tenderness in the left adnexa. Right adnexa tender but without masses appreciated. GC and Chlamydia probe obtained. Neuro: A+O x 3. Normal speech, mentation, gait. Cranial nerves II - XII grossly intact. No gross motor or sensory deficit. Ext: No C/C/E. Skin: Warm and dry without rash.
[2021-03-27 00:08] VITALS: BP 129/82; PULSE 80; RESP 18; TEMP 36.9; O2SAT 98
[2021-03-27 00:46] LABS: Abs Immature Grans 0.01 10^3/uL (0.0-0.06); Absolute Basophil Count 0.06 10^3/uL (0.0-0.2); Absolute Eosinophil Count 0.07 10^3/uL (0.0-0.7); Absolute Lymphocyte Count 2.32 10^3/uL (1.2-3.4); Absolute Monocyte Count 0.53 10^3/uL (0.1-0.8); Absolute Neutrophil Count 4.61 10^3/uL (1.2-6.7); Basophils % 0.8; Eosinophils % 0.9; HCT 43.1 % (36.0-46.0); HGB 14.2 g/dL (11.2-15.7); Immature Grans % 0.1; Lymphocytes % 30.5; MCH 30.1 pg (27.0-33.0); MCHC 32.9 % (32.0-36.0); MCV 91.3 fL (80-95); MPV 9.1 fL (8.0-11.0); Neutrophils % 60.7; Nucleated RBC 0 %; Platelet Count 239 10^3/uL (130-400); RBC 4.72 10^6/uL (3.93-5.22); RDW 11.9 % (11.7-14.6); RDW-SD 40.2 fL
[2021-03-27 00:58] LABS: HCG Qual (Serum) Negative
--- NOTE | 2021-03-27 00:58 | DI.US_ITS ---
Exam(s) US PELVIS TRANSVAGINAL EXAM: US PELVIS TRANSVAGINAL CLINICAL HISTORY: acute pelvic pain with bleeding not TECHNIQUE: Ultrasound of the pelvis was performed both transabdominal and transvaginal. COMPARISON: No exams were available for comparison FINDINGS: UTERUS: Apparently this patient has had recent bilateral salpingectomy. Measures 8.2 cm length x 3.7 cm AP x 5.4 cm wide. There are no uterine fibroids. Endometrial thickness measures 7.1 mm. There is no fluid in the endometrial canal. CERVIX: There are small nabothian cysts. RIGHT OVARY: Measures 3.2 x 1.6 x 2.7 cm Small follicular cysts are noted in the right ovary. LEFT OVARY: Measures 3.9 x 2.6 x 2.4 cm Addition to small cysts, there is a 2.8 x 1.4 x 2.3 cm density in the left ovary which is possibly he morrhagic cyst or involuting corpus luteal cyst. Cannot exclude endometrioma and other pathology. D oes not contain shadowing calcification CUL-DE-SAC: Moderate amount of free fluid in this cul-de-sac and left adnexa. IMPRESSION: 1. Normal appearing uterus and age-appropriate endometrium. 2. There is a 28 x 14 x 23 millimeter finding in the left ovary which is either hemorrhagic cyst or i nvoluting corpus luteal cyst or endometrioma.. This requires follow-up. Small follicular cysts are noted in the opposite-right ovary. 3. There is some moderate amount of fluid in the cul-de-sac and left adnexa. DATA REPOSITORY:
--- NOTE | 2021-03-27 01:49 | NUR.NOTE ---
To DI per cart with technicianNursing Note:
[2021-03-27 02:20] VITALS: BP 111/67; PULSE 66; O2SAT 100
--- NOTE | 2021-03-27 02:58 | DI.VRAD_ITS ---
PROCEDURE INFORMATION: Exam: US Pelvis Complete, Transabdominal and US Pelvis, Transvaginal Exam date and time: 03/27/2021 1:02 AM Age: 35 years old Clinical indication: Other: Rlq pain, sudden onset; Prior surgery; Surgery date: 6+ months; Surgery type: Bilateral salpingectomy TECHNIQUE: Imaging protocol: Real-time transabdominal and transvaginal pelvic ultrasound (complete) with image documentation. Transvaginal imaging was used for better evaluation of the endometrium, adnexa, and/or cervix. COMPARISON: MRI L LOWER JOINT WO CONT 12/12/2017 4:54 PM FINDINGS: Uterus/cervix: Normal endometrial stripe thickness, 7.1 mm. Closed cervix. Unremarkable myometrium. Right adnexa: Normal. No mass. Small follicles noted. Normal ovarian blood flow. Left adnexa: Normal. No mass. Probable collapsed corpus luteum. Normal ovarian blood flow. Intraperitoneal space: Mild free fluid, pelvic cul-de-sac and left adnexa. Urinary bladder: Normal. Right kidney: Negative for right hydronephrosis. Left kidney: Negative for left hydronephrosis. IMPRESSION: Normal ultrasound appearance of the uterus and ovaries. Mild pelvic free fluid noted. Probable collapsed/hemorrhagic left ovarian cyst/corpus luteum. Dictated and Authenticated by: Balaji Chauhan MD. Ordering:JAYRO Miles MD
[2021-03-27 03:20] VITALS: BP 123/78; PULSE 77; RESP 16; O2SAT 98
[2021-03-29 15:36] LABS: Chlamydia Result Negative (Negative); GC Result Negative (Negative)
== END 2021-03-27 03:20 | disposition home or self-care (01) ==
PROVIDERS: Emergency Provider Emergency Medicine; PCP Internal Medicine
DX: R10.10 Upper abdominal pain, unspecified (principal); N93.9 Abnormal uterine and vaginal bleeding, unspecified
CPT/HCPCS: 36415; 81025; 87491; 87591; 99284; 76830; 76856; 84703; 85025

== ENCOUNTER 2021-05-28 12:36 | Emergency (ER) | payer MEDICAID, SELFPAY ==
[2021-05-28 12:41] VITALS: BP 133/83; PULSE 96; RESP 19; TEMP 36.8; O2SAT 100
--- NOTE | 2021-05-28 13:15 | DI.RAD_ITS ---
Exam(s) XR CHEST 2V PA LATERAL EXAM: XR CHEST 2V PA LATERAL CLINICAL HISTORY: chest pain, hx of pneumothorax TECHNIQUE: 2D digital imaging was performed. COMPARISON: No exams were available for comparison FINDINGS: MEDIASTINUM: Normal. HEART: Normal. PULMONARY VASCULATURE: Normal. LUNGS: Clear. PLEURAL SPACE: No pleural effusion or pneumothorax. BONE:Unremarkable for age. IMPRESSION: No acute abnormality. DATA REPOSITORY: RADIATION DOSE DELIVERED:
--- NOTE | 2021-05-28 13:15 | RT.EKG_ITS ---
APPROVED REPORT Exam: Resting ECG Reason for Exam: chest pain Patient Location: E HR:86 bpm ECG Measurements Heart Rate 86 AXIS MA 146 P 56 QRSd 87 QRS 72 QT 367 T 53 QTc 439 Conclusion Sinus rhythm...normal P axis, V-rate 60- 99
[2021-05-28 13:43] LABS: Abs Immature Grans 0.03 10^3/uL (0.0-0.06); Absolute Basophil Count 0.04 10^3/uL (0.0-0.2); Absolute Eosinophil Count 0.02 10^3/uL (0.0-0.7); Absolute Lymphocyte Count 1.61 10^3/uL (1.2-3.4); Absolute Monocyte Count 0.56 10^3/uL (0.1-0.8); Basophils % 0.5; Eosinophils % 0.2; HCT 44.9 % (36.0-46.0); HGB 14.9 g/dL (11.2-15.7); Immature Grans % 0.4; Lymphocytes % 18.8; MCH 30.6 pg (27.0-33.0); MCHC 33.2 % (32.0-36.0); MCV 92.2 fL (80-95); Monocytes % 6.5; Neutrophils % 73.6; Nucleated RBC 0 %; Platelet Count 290 10^3/uL (130-400); RBC 4.87 10^6/uL (3.93-5.22); RDW 11.9 % (11.7-14.6); RDW-SD 40.6 fL; WBC 8.56 10^3/uL (4.4-10.8)
--- NOTE | 2021-05-28 13:43 | W.ED.GENAD ---
Discharge Plan Disposition Patient Disposition: HOME Condition: Good Discharge Details Clinical Impression: Chest pain, Screen for STD (sexually transmitted disease) Primary Care Provider: Jeannine Fountain ED Provider: Nanda Francis Home Meds and New Rx's Prescriptions: New potassium chloride 20 mEq tablet,ER particles/crystals 20 meq PO DAILY Qty: 5 RF: 0 Continued albuterol sulfate [ProAir HFA] 90 mcg/actuation HFA aerosol inhaler 2 inh INHALATION DAILY PRNRF: 0 epinephrine 0.3 mg/0.3 mL auto-injector RF: 0 sertraline 25 mg tablet 25 mg PO DAILY RF: 0 ibuprofen 800 mg tablet 800 mg PO PRN PRNRF: 0 sumatriptan succinate [Imitrex] 50 mg tablet 50 mg PO PRN PRNRF: 0 bupropion HCl 150 mg tablet extended release 24 hr 150 mg PO DAILY RF: 0 Discharge Instructions Instructions: Chest Pain (ED) Additional Instructions: Your STD testing should return between 24 to 72 hours You may call after that period of time to inquire regarding results Ibuprofen and Tylenol for discomfort You may use your albuterol as needed for shortness of breath Please return earlier should you have new or worsening complaints Please follow-up with NK chest at your scheduled appointment and your primary care physician Return to the emergency room with new or worsening complaints Referrals: Jeannine Fountani [Primary Care Provider] - Medical Decision Making Chest x-ray does not show acute abnormality per my review and radiology interpretation STD labs pending Patient mildly hypokalemic without any EKG findings consistent with pain She supplemented with potassium for home She is not experiencing vomiting or diarrhea nontender chest and abdominal exam She is given low threshold to return should she have new or worsening complaints has good follow-up with NK and feels safe for discharge home given low threshold to return should she have new or worsening complaints Medical Records Medical records reviewed: Yes I reviewed the patient's medical records. Lab Data Lab results reviewed: Yes I reviewed the patient's lab results. HPI General Mode of arrival: ambulatory. Date/Time Provider Initiated Documentation: 05/28/21 12:37. Limitations to Documentation: no limitations. Information obtained by: patient. HPI Narrative: 35-year-old female presents with report of chest pain which started yesterday during an anxiety attack. Patient states she noticed pleuritic chest pain which distant. She has a history of pneumothorax and is concerned she may have the same. She denies any significant shortness of breath. She denies any fever or chills. She denies any cough. She has been under a great deal of stress of a partner has been lying to her per patient. She reportedly established with please and NK chest yesterday and has a safety plan in place. She denies any suicidal or homicidal ideation. She is having some trouble sleeping but declines any intervention for this. She has an appointment scheduled with the psychologist later today reportedly. Denies any assault. Denies any vaginal lesions or rashes. She denies any calf pain or swelling, history of exogenous hormones, tobacco use. Related Data Home Medications Medication Instructions Recorded Confirmed albuterol sulfate [ProAir HFA] 2 inh INHALATION DAILY PRN 01/23/20 03/27/21 epinephrine 05/04/20 sertraline 25 mg PO DAILY 03/27/21 03/27/21 bupropion HCl 150 mg PO DAILY 05/28/21 05/28/21 ibuprofen 800 mg PO PRN PRN 05/28/21 05/28/21 potassium chloride 20 meq PO DAILY #5 tab 05/28/21 sumatriptan succinate [Imitrex] 50 mg PO PRN PRN 05/28/21 05/28/21 Previous Rx's Medication Instructions Recorded potassium chloride 20 meq PO DAILY #5 tab 05/28/21 Allergies Allergy/AdvReac Type Severity Reaction Status Date / Time acetaminophen Allergy Severe Hives, Unverified 05/28/21 12:44 difficulty breathing clindamycin Allergy Severe Hives and Unverified 05/28/21 12:44 diffficulty breathing General Stated Complaint: Chest/Rib KAT: 3 Review of Systems All systems reviewed & are unremarkable except as noted in HPI and below [facility] Active Problem List (Updated 05/28/21 @ 14:45 by SHERIF Loja) Pelvic pain (Acute) Vaginal bleeding (Acute) Chest pain (Acute) Screen for STD (sexually transmitted disease) (Acute) Tendinitis of left elbow (Acute) Contusion of left elbow (Acute) Lactating adenoma of breast (Acute 01/11/17) Severe dysplasia of cervix (NIKA III) (Acute 01/11/17) Left knee pain (Chronic) Spontaneous pneumothorax (Acute) Medical History (Updated 05/28/21 @ 14:45 by SHERIF Loja) 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 Surgical History Biopsy of breast Status post surgical removal of both fallopian tubes Social History Smoking/Tobacco Use Status: Former Tobacco Use Smoking risk assessment performed?: Yes Alcohol Intake: current Alcohol Intake frequency: a few times a week Alcohol type: beer and wine Drug use: Occasionally Substance use type: does not use and marijuana Household members: children Housing: house Number of Children: 2 What is your relationship status?: Panel score (0-1 are the most socially isolated patients): 0 In current or past relationships, have you been: other Do you feel safe at home: No Do you feel safe in your relationship?: No Additional Social history: pt states she has already talked to prior to arrival and has contracted for safety. Pt states that her boyfirend is not who he says he is and also requests an STD check. Pt states she also has not slept in over 24 hours because of the PTSD and would like to have something to help her sleep. Exam Const General: cooperative, comfortable and no acute distress Eyes Pupils: PERRL Chest Other: No crepitus, no tenderness Resp Effort & Inspection: normal respiratory effort Auscultation: clear to auscultation bilaterally Cardio Rate: regular rate Rhythm: regular rhythm GI Other: No abdominal tenderness Skin General skin exam: no rashes or lesions noted Neuro General: patient alert and patient oriented x3 Extrem Other: Distal pulses intact, no calf swelling or tenderness Psych Appearance: grossly normal and well kempt Affect: normal affect Attitude: cooperative Thought Process: normal Thought Content: normal Insight: insight good Judgment: judgment good Course Vital Signs Vital signs: Vital Signs Temperature 36.8 C 05/28/21 12:41 Pulse 96 H 05/28/21 12:41 Respiratory Rate 05/28/21 12:41 Blood Pressure 133/83 05/28/21 12:41 Pulse Oximetry 100 05/28/21 12:41 Temperature 36.8 C 05/28/21 12:41 Pulse 96 H 05/28/21 12:41 Respiratory Rate 05/28/21 12:41 Respiratory Effort Non-Labored 05/28/21 12:47 Blood Pressure 133/83 05/28/21 12:41 Pulse Oximetry 100 05/28/21 12:41 Pain Level 2 05/28/21 13:13
[2021-05-28 14:00] LABS: ALT 25 U/L (14-59); AST 31 U/L (15-37); Albumin 4.6 g/dL (3.4-5.0); Alkaline Phosphatase 84 U/L (46-116); Anion Gap 9.2 mmol/L (3-11); BUN 12 mg/dL (7-18); Bilirubin, Total 0.6 mg/dL (0.2-1.0); CO2 28.8 mmol/L (21.0-32.0); CREATININE 0.9 mg/dL (0.55-1.02); Calcium 9.8 mg/dL (8.5-10.1); Chloride 101 mmol/L (98-107); Glucose 126 mg/dL (74-106); Potassium 3.3 mmol/L (3.5-5.1); Sodium 139 mmol/L (136-145); Total Protein 8.7 g/dL (6.4-8.2)
[2021-05-28 14:01] LABS: Troponin I < 0.05 ng/mL (<0.06)
[2021-05-28 14:49] VITALS: PULSE 82; RESP 16; TEMP 36.6; O2SAT 100
[2021-05-31 09:59] LABS: Syphilis Serology (RPR) Negative (Negative)
[2021-05-31 10:44] LABS: Hepatitis B Surface Ag Negative (Negative)
[2021-05-31 11:50] LABS: Hepatitis C Ab w Rflx HCV PCR Negative (Negative)
[2021-05-31 15:47] LABS: Chlamydia Result Negative (Negative); GC Result Negative (Negative)
--- NOTE | 2021-06-01 17:26 | NUR.NOTE ---
results of STD tests given to pt via phone-pt called earlier requesting them.Nursing Note:
== END 2021-05-28 14:54 | disposition home or self-care (01) ==
PROVIDERS: Emergency Provider Physician Assistant; PCP Nurse Practitioner Family
DX: R07.9 Chest pain, unspecified (principal); E87.6 Hypokalemia; Z11.3 Encounter for screening for infections with a predominantly sexual mode of transmission; Z87.09 Personal history of other diseases of the respiratory system
CPT/HCPCS: 80053; 81025; 86803; 87340; 87491; 87591; 93005; 99284; 71046; 84484; 85025; 86592; 93010

== ENCOUNTER 2021-09-21 19:48 | Outpatient (REF) | payer MEDICAID, SELFPAY ==
[2021-09-21 14:53] LABS: TSH (W/Ref FT4) 1.17 uIU/mL (0.36-3.74)
== END 2021-09-21 19:49 | disposition home or self-care (01) ==
LOC: NCHCN 19:48
PROVIDERS: PCP Nurse Practitioner Family; Visit Provider Nurse Practitioner Family
DX: F41.8 Other specified anxiety disorders (principal); G43.909 Migraine, unspecified, not intractable, without status migrainosus; L70.9 Acne, unspecified
CPT/HCPCS: 84443

== ENCOUNTER 2022-06-08 10:45 | Outpatient (CLI) | payer MEDICAID, SELFPAY ==
--- NOTE | 2022-06-08 10:30 | DI.RAD_ITS ---
Exam(s) XR KNEE RT 3V AP,LAT,LEXIE EXAM: XR KNEE RT 3V AP,LAT,LEXIE CLINICAL HISTORY: R knee pain. TECHNIQUE: 2D digital imaging was performed. COMPARISON: No exams were available for comparison FINDINGS: 3 views No evidence of fracture nor prominent joint effusion. Bone density normal. No osseous lesions. No degenerative changes. IMPRESSION: No significant osseous findings. DATA REPOSITORY: RADIATION DOSE DELIVERED:
== END 2022-06-08 10:46 | disposition home or self-care (01) ==
LOC: DIORS 10:45
PROVIDERS: PCP Nurse Practitioner Family; Referring Provider Nurse Practitioner Family; Visit Provider Physician Assistant
DX: M25.561 Pain in right knee (principal)
CPT/HCPCS: 73562

== ENCOUNTER → 2022-06-10 00:52 | Outpatient (CLI) | payer MEDICAID, SELFPAY ==
--- NOTE | 2022-06-10 07:45 | DI.MRI_ITS ---
Exam(s) MR LOWER JOINT RT WO EXAM: MR LOWER JOINT RT WO CLINICAL HISTORY: R KNEE PAIN,internal derangement, m23.91. TECHNIQUE: Multiplanar multisequence MRI was performed. COMPARISON: MR MRI L LOWER JOINT WO CONT from 12/12/2017 CR XR KNEE RT 3V AP,LAT,LEXIE from 06/08/2022 FINDINGS: BONES: There is no fracture or contusion pattern. JOINTS: A small joint effusion is present. Articular cartilage: Patellofemoral joint: Articular cartilage is unremarkable. Medial femoral tibial joint: Articular cartilage is unremarkable. Lateral femoral tibial joint: Articular cartilage is unremarkable. TENDONS: Extensor mechanism: Unremarkable. Medial retinaculum: Unremarkable. Lateral retinaculum: Unremarkable. Popliteus: Unremarkable. Edema around the pes anserine tendons. No focal tendon tear is seen. There is a small amount of bursa l fluid. MUSCLES: Unremarkable. MENISCI: The medial meniscus is unremarkable. The lateral meniscus is unremarkable. SOFT TISSUES: Unremarkable. LIGAMENTS: Anterior Cruciate: Unremarkable. Posterior Cruciate: Unremarkable. Medial Collateral:Unremarkable. Lateral Collateral: Unremarkable. OTHER: IMPRESSION: Pes anserine bursitis. No evidence of tendon, ligament or meniscal tear. DATA REPOSITORY:
== END ==
PROVIDERS: PCP Nurse Practitioner Family; Visit Provider Student in an Organized Health Care Education/Training Program
DX: M25.561 Pain in right knee (principal)
CPT/HCPCS: 73721

== ENCOUNTER 2022-07-15 10:27 | Day surgery (SDC) | payer MEDICAID, SELFPAY ==
--- NOTE | 2022-07-15 08:47 | W.ANESPRE ---
General Info Date of Service Date Performed: 07/15/22 Height: 5 ft 1 in Weight: 56.245 kg Body Mass Index (BMI): 23.4 Surgical Procedure: Operation Date: 07/15/22 12:10 Proposed Procedure Side Surgeon p Knee Arthroscopy w/any indicated meniscal, chondral and synovial surgery Right Tony Proctor MD Meds Allergies and Home Medications Allergies Allergy/AdvReac Type Severity Reaction Status Date / Time acetaminophen Allergy Severe Hives, Verified 07/15/22 11:17 difficulty breathing clindamycin Allergy Severe Hives and Verified 07/15/22 11:17 diffficulty breathing sertraline Allergy Unknown Verified 07/15/22 11:17 Home Medication Medication Instructions Recorded albuterol sulfate 90 mcg/actuation 2 inh inhalation DAILY PRN 01/23/20 aerosol inhaler (ProAir HFA) epinephrine 0.3 mg/0.3 mL 0.3 ml IM ONCE PRN 05/04/20 injection, auto-injector sumatriptan succinate 50 mg tablet 50 mg PO PRN PRN 05/28/21 (Imitrex) modafinil 200 mg tablet 200 mg PO DAILY 05/25/22 spironolactone 50 mg tablet 50 mg PO BID 05/25/22 naproxen 250 mg tablet 250 - 500 mg PO BID PRN #20 tabs 07/15/22 oxycodone 5 mg tablet 5 - 10 mg PO Q4H PRN moderate to 07/15/22 severe pain #9 tabs Current Visit Medications: Current Medications Generic Name Dose Route Start Last Admin Trade Name Freq PRN Reason Stop Dose Admin Ringer's Solution 1,000 mls @ 30 mls/hr 07/15/22 06:00 IV 08/13/22 23:59 INFUSION ARMAAN Cefazolin Sodium/Dextrose 2 gm in 50 mls @ 100 mls/hr 07/15/22 06:00 Ancef Duplex IVPB 08/13/22 23:59 PREOP ARMAAN IV Miscellaneous Supplies 1 each 07/15/22 06:00 Iv Access IV 08/13/22 23:59 DIRECTED ARMAAN Sodium Chloride 0 ml 07/15/22 06:00 Normal Saline Flush 10 Ml Syr IV 08/13/22 23:59 PRN PRN Sodium Chloride 0 ml 07/15/22 06:00 Normal Saline 10 Ml Vial IJ 08/13/22 23:59 DIRECTED PRN Sterile Water 0 ml 07/15/22 06:00 Water,Injection,Sterile 10 Ml Vial IJ 08/13/22 23:59 DIRECTED PRN PFSH Active Problems Active Problems: Problem Status Onset Code Synovial plica of right knee M67.51 Internal derangement of right knee M23.91 Reactive airway disease J45.909 Pelvic pain R10.2 Vaginal bleeding N93.9 Chest pain R07.9 Screen for STD (sexually transmitted disease) Z11.3 Tendinitis of left elbow M77.8 Contusion of left elbow S50.02XA Lactating adenoma of breast 01/11/17 D24.9 Severe dysplasia of cervix (NIKA III) 01/11/17 D06.9 Left knee pain M25.562 Spontaneous pneumothorax J93.83 Medical History Medical History (Updated 07/15/22 @ 09:46 by Tony Proctor MD) Balbuena's cyst of knee Depression with anxiety History of tobacco use Keloid scar of skin Lactating adenoma Melasma Migraine Surgical History Surgical History Biopsy of breast Status post surgical removal of both fallopian tubes Tobacco Smoking/Tobacco Use Status: Former Tobacco Use Alcohol Alcohol Intake: current Alcohol intake frequency: a few times a week Alcohol type: beer and wine Substance Use Substance use: Occasionally Substance use type: marijuana Details: t-1; 2xmonth at most per patient Vital Signs and Lab Results Vital Signs Most Recent Vital Signs in EMR: Temp Pulse Resp BP Pulse Ox 36.4 C L 75 16 104/82 98 07/15/22 10:56 07/15/22 10:56 07/15/22 10:56 07/15/22 10:56 07/15/22 10:56 Lab Results Blood Type / Crossmatch: No Data to Display Complete Blood Count: No Data to Display Complete Metabolic Panel: No Data to Display Liver Function Panel: No Data to Display Coagulation Panel: No Data to Display Cardiac Panel: No Data to Display Arterial Blood Gas: No Data to Display Venous Blood Gas: No Data to Display Pancreas Panel: No Data to Display Thyroid Panel: No Data to Display Infectious Disease: No Data to Display Blood Cultures: No Data to Display Toxicology Panel: No Data to Display Panel: No Data to Display Imaging and Studies Imaging and Studies Study information below may be from another EMR and interpreted by another provider. Please see original notes in EMR for more complete details. EKG Summary: 05/2021: sinus Pulmonary Function Summary: 01/26: mild obstructive dz, no sig bronchodilator response. Anesthesia Assessment and Plan Anesthesia History Personal History: No History of Anesthesia Complications Family History: No Family History of Anesthesia Complications Exercise Tolerance Exercise Tolerance: Metabolic Equivalents>4 Cardiac & Pulmonary Exam Cardiac Exam: Normal S1/S2 Heart Sounds Pulmonary Exam: Clear Bilateral Breath Sounds Implantable Cardiac Device Does patient have a Pacemaker or an ICD?: No Airway Exam Known Difficult Airway: No Mallampati Class: 2 Mouth Opening: Normal (> 3cm) Thyromental Distance: Greater than 3 cm Neck Range of Motion: Full ROM Neck Circumference: Normal Teeth Condition: Normal Dentition ASA Classification ASA Score: ASA 2 Emergency Case?: No NPO Status NPO Status: NPO Clears >2 hours, Solids >8 hours Status Status: Negative HCG Anesthesia Plan Resuscitation Status: Full Code Anesthesia Technique: Spinal Anesthesia Airway Planned: Natural Airway Monitors Used: Standard Monitors Preoperative Comments:: 36 yo female for knee scope. Sig PMHx: RAD, spontaneous PTX, migraine, depression/anxiety, former smoker, occ EtOH, occ Cannabis. Previous Anes: - lap salp: Mac 3 grade 1, easy mask. - Knee scope: LMA 3 Plan: would like spinal.
[2022-07-15 08:53] VITALS: BMI 23.4
[2022-07-15 10:56] VITALS: BP 104/82; PULSE 75; RESP 16; TEMP 36.4; O2SAT 98
[2022-07-15] MEDS: Lactated Ringers 1,000 ML 30 ML IV (11:24)
[2022-07-15] MEDS: ceFAZolin 2 GM/50 ML BAG IVPB (11:42)
[2022-07-15] MEDS: Bupivacaine 0.5% Pres-Free W/EPI 30 ML VIAL (12:15)
[2022-07-15] MEDS: MORPHine 4 MG/ML SYR (12:15)
[2022-07-15] MEDS: EPINEPHrine 30 MG/30 ML VIAL (12:15)
--- NOTE | 2022-07-15 12:26 | W.PM.DSUDISC ---
Date of service: 07/15/22 Time of Service: 15:00 Discharge Plan Disposition Patient Disposition: Home Discharge Details Attending Provider: Tony Proctor Primary Care Provider: Jeannine oFuntain Home Meds and New Rx's Prescriptions: New naproxen 250 mg tablet 250 - 500 mg PO BID PRNQty: 20 0RF Rx Instructions: take with a meal oxycodone 5 mg tablet 5 - 10 mg PO Q4H MDD 30 mg PRN (Reason: moderate to severe pain) Qty: 9 0RF Continued modafinil 200 mg tablet 200 mg PO DAILY spironolactone 50 mg tablet 50 mg PO BID albuterol sulfate [ProAir HFA] 90 mcg/actuation HFA aerosol inhaler 2 inh INHALATION DAILY PRN Label Comments: INHALE ONE TO TWO PUFFS BY MOUTH EVERY 4 TO 6 HOURS NEEDED FOR WHEEZING epinephrine 0.3 mg/0.3 mL auto-injector 0.3 ml IM ONCE PRN Label Comments: INJECT 0.3ML ONE TIME PER DAY NEEDED sumatriptan succinate [Imitrex] 50 mg tablet 50 mg PO PRN PRN Discontinued ibuprofen 200 mg Tablet 200 mg ibuprofen 800 mg tablet 800 mg PO PRN PRN Discharge Instructions Additional Instructions: Surgery: Right knee arthroscopy with plica excision Activity: Weightbearing as tolerated. Advance range of motion as comfort allows. No knee brace or crutches needed as soon as comfortable. Recommend avoiding sports, pivoting, and squatting for 6-8 weeks. A physical therapy prescription will be provided separately in the office on follow-up if needed. Prescriptions: Naproxen 250 mg take 1-2 every 12 hours with a meal as needed for moderate pain (do NOT use at same time as Ibuprofen) Oxycodone 5 mg take 1-2 every 4-6 hours as needed for severe pain You may use [id number] Tylenol (acetaminophen) as needed for mild pain. These pain medications may be taken all at once or in different combinations as needed. Also, recommend Colace (docusate) as a stool softener as surgery and pain medicine cause constipation. You may try [id number] diphenhydramine (Benadryl) 25-50 mg nightly as a sleep aid Dressings: Leave dressing in place for 3 days. May then remove and leave open to air or cover incisions with Band-Aids. May shower after 5 days. Follow-up: 10-[address] Proctor You may take off the leg compression stockings this evening at home. You may also leave them on a few days longer if you have a history of leg swelling or edema. Let us know right away if you develop any redness, drainage, fevers, chest pain, or trouble breathing. Do not drink alcohol or drive for at least 24 hours after anesthesia. Please call the office during business hours with any questions or concerns. Discharge Orders Discharge Orders: Discharge Order (Routine); Ordered 07/15/22 Ordered By: Tony Proctor DS: Diagnosis Discharge Diagnosis (1) Synovial plica of right knee: Status: Acute
--- NOTE | 2022-07-15 12:29 | W.PM.OP ---
Date of service: 07/15/22 Time of Service: 12:00 Operative Note Operative Note DATE OF PROCEDURE: 07/15/22 PRE-OP DIAGNOSIS: Right knee 1. Plica syndrome POST-OP DIAGNOSIS: same PROCEDURE: Right knee 1. Limited synovectomy, plica excision: CPT #80620 SURGEON: Tony Proctor ENGINEERING AIDE: None None ANESTHESIA TYPE: Local By Surgeon and Spinal Refer to Anesthesia Record PATHOLOGY: none sent TOURNIQUET TIME: 0 Patient was transported to: PACU Patient's condition: stable Indications: Please see complete medical record for details. Findings: Exam under anesthesia: Full range of motion, stable Arthroscopic findings: Obvious medial gutter into patellofemoral plical band with adjacent medial femoral condyle depression. Intact articular cartilage throughout. Intact medial and lateral menisci. Intact ACL PCL. Procedure Description: In the operating room, spinal anesthesia was induced. The patient was positioned supine on the operating room table. All bony prominences were well-padded. Preoperative antibiotics were administered. The knee was prepped and draped in the usual sterile fashion. The correct patient, procedure, and side of the procedure were all verified prior to incision. Exam under anesthesia was performed. 10 cc of 0.25% bupivacaine containing epinephrine was infiltrated about the planned anteromedial and anterolateral knee arthroscopy portals. The portals were established and a complete diagnostic arthroscopy was performed with relevant findings detailed above. The mechanical shaver was used to remove pathologic medial and patellofemoral plical band and adjacent synovium to a smooth resected margin and trim any prominent tissue edges to minimize chance of recurrence. Under direct arthroscopic visualization an 18-gauge needle was passed into the knee from superolateral into the suprapatellar pouch. The knee was copiously irrigated with arthroscopic fluid until there was a clear effluent before being drained of all fluid. The anteromedial and anterolateral portals were closed in 3-0 Monocryl in a buried interrupted fashion. [20 cc of 0.25% bupivacaine] with epinephrine containing 4 mg of morphine was infiltrated into the knee through the previously placed needle. Mastisol, Steri-Strips, and 4 x 4 gauze were applied over the incisions followed by sterile soft roll. The knee was then wrapped gently with an TOMASZ comressive bandage. The patient awoke from anesthesia without complication and was transferred to the recovery room in a stable condition.
[2022-07-15 12:33] VITALS: BP 93/67; PULSE 64; RESP 16; TEMP 36.7; O2SAT 99
--- NOTE | 2022-07-15 13:01 | W.ANESPOSTOP ---
Postoperative Evaluation Date, Time and Location Date Performed: 07/15/22 Time Performed: 13:01 Patient Location: Day Surgery Unit Vital Signs Most Recent Imported Vital Signs: Most Recent Vital Signs Temp Pulse Resp BP Pulse Ox 36.7 C 64 16 93/67 L 99 07/15/22 12:33 07/15/22 12:33 07/15/22 12:33 07/15/22 12:33 07/15/22 12:33 Pain Score Most Recent Pain Score: Most Recent Pain Score Pain Level 0 07/15/22 12:33 Assessment Mental Status: Awake (Alert & Oriented to Patient Baseline) Airway and Respiratory Function: Patent airway with normal (patient baseline) respiratory exam Cardiovascular Function: Hemodynamically Stable Hydration Status: Adequately Hydrated Nausea & Vomiting: No Nausea or Vomiting Pain: Other (spinal not worn off yet. ) Peripheral Nerve Block: Patient did not receive a nerve block
[2022-07-15 13:14] VITALS: BP 105/74; PULSE 62; RESP 16; TEMP 36.5; O2SAT 100
[2022-07-15 13:48] VITALS: BP 102/70; PULSE 74; RESP 16; TEMP 36.2; O2SAT 99
== END 2022-07-15 14:48 | disposition home or self-care (01) ==
PROVIDERS: PCP Nurse Practitioner Family; Visit Provider Student in an Organized Health Care Education/Training Program
PROC: (CPT 29870; principal; 2022-07-15 12:00)
DX: M67.51 Plica syndrome, right knee (principal)
CPT/HCPCS: 29875; J0690; J1100; J2270; J2405; J2704

== ENCOUNTER → 2023-02-20 02:36 | Outpatient (CLI) | payer MEDICAID, SELFPAY ==
--- NOTE | 2023-02-20 06:54 | DI.MRI_ITS ---
Exam(s) MR LOWER JOINT RT WO EXAM: MR LOWER JOINT RT WO CLINICAL HISTORY: R KNEE PAIN,internal derangement, m23.91 TECHNIQUE: Multiplanar multisequence MRI of the knee was performed. COMPARISON: CR XR KNEE RT 3V AP,LAT,LEXIE from 06/08/2022 MR MR LOWER JOINT RT WO from 06/10/2022 PRIOR MRI SCAN 06/10/2022 REVIEWED. FINDINGS: EFFUSION: There is a moderate size knee joint effusion again evident. There is no Balbuena's cyst in th e popliteal fossa. PES Anserine: The previously present pes anserine bursitis appears to have resolved. There is presen tly no abnormal fluid around these medial tendons nor evidence of tendon tear. MARROW:There is no evidence of fracture, bone contusion, nor osteochondral defects.. There are no si gnificant osseous lesions. PATELLOFEMORAL COMPARTMENT: The quadriceps tendon is intact. The patellar ligament is intact. There is no significant thinning of the retropatellar cartilage. No evidence of fissure nor signific ant chondral defect. No osteochondral defect at this level.There is no intraosseous signal to sugges t recent patellar dislocation. There are no patellar retinacular tears. CRUCIATE LIGAMENTS: The anterior cruciate ligament is intact.There is some mild increased signal in t he upper half of the posterior cruciate ligament, more so than was evident on the June 2022 study . However, there is no full-thickness tear of this structure. MEDIAL COMPARTMENT/MEDIAL MENISCUS: There is increased signal in the posterior horn of the medial men iscus, more so than previous. On 1 coronal image there is a subtle suggestion of a inferior level te ar in the outer 3rd of the posterior horn adjacent to the meniscal capsular junction. There are no chondral defects, osteochondral defects, subarticular marrow edema, nor osteophytes evid ent. MEDIAL COLLATERAL LIGAMENT: There is increased signal seen between the deep and superficial layers of the MCL, similar to the previous study. LATERAL COMPARTMENT/LATERAL MENISCUS: There is no evidence of lateral meniscal tear.There are no cary dral defects, osteochondral defects, subarticular marrow edema, nor osteophytes evident. ILIOTIBIAL BAND: Intact LATERAL COLLATERAL LIGAMENT COMPLEX: The fibular collateral ligament is intact. The biceps femoris t endon is intact.Popliteus muscle and tendon are intact. IMPRESSION: 1. Compared to the prior MRI scan of June 2022 there has been resolution of the fluid around the pes anserine tendons on the medial aspect of the knee. There is some fluid signal interposed between the deep and superficial layers of the adjacent medial collateral ligament but no high-grade tear of the MCL evident. 2. Increasing signal noted within the adjacent posterior horn of the medial meniscus. On 1 coronal i mage there is a subtle suggestion of possible small focal tear in the outer 3rd of the posterior horn although this is less evident on the sagittal images. This is adjacent to the above described MCL f indings. Anterior horn of the medial meniscus is intact and there are no tears of the lateral menisc us. 3. Mild increased signal seen in the superior aspect of the posterior cruciate ligament but no high-g rade tear. The ACL appears unremarkable. 4. No significant findings in the lateral compartment nor abnormal findings in the lateral collateral ligament complex. 5. No significant findings in the patellofemoral compartment. 6. Moderate size joint effusion again noted. There is no Balbuena cyst. 7. There are no osteoarthritic degenerative changes and there are no osteochondral defects. No loos e intra-articular bodies evident. DATA REPOSITORY:
== END ==
PROVIDERS: PCP Nurse Practitioner Family; Visit Provider Student in an Organized Health Care Education/Training Program
DX: M25.561 Pain in right knee (principal)
CPT/HCPCS: 73721

== ENCOUNTER 2023-02-28 12:01 | Emergency (ER) | payer MEDICAID, SELFPAY ==
[2023-02-28 12:06] VITALS: BP 123/78; PULSE 70; RESP 18; TEMP 36.8; O2SAT 98
--- NOTE | 2023-02-28 15:32 | ED.GENADUL_ITS ---
Discharge Plan Disposition Patient Disposition: Home Condition: Stable Discharge Details Clinical Impression: Knee pain Primary Care Provider: Jeannine Fountain ED Provider: Jacek Vincent Home Meds and New Rx's Prescriptions: New cyclobenzaprine 5 mg tablet 5 mg PO QHS PRNQty: 10 0RF No Action spironolactone 50 mg tablet 50 mg PO BID albuterol sulfate [ProAir HFA] 90 mcg/actuation HFA aerosol inhaler 2 inh INHALATION DAILY PRN Patient Comments: INHALE ONE TO TWO PUFFS BY MOUTH EVERY 4 TO 6 HOURS NEEDED FOR WHEEZING epinephrine 0.3 mg/0.3 mL auto-injector 0.3 ml IM ONCE PRN Patient Comments: INJECT 0.3ML ONE TIME PER DAY NEEDED sumatriptan succinate [Imitrex] 50 mg tablet 50 mg PO PRN PRN Discharge Instructions Instructions: Knee Pain (ED) Additional Instructions: Please follow-up closely with [facility] orthopedic surgery. Medical Decision Making 37-year-old female presents after remote right knee injury, has been evaluated with imaging modalities and orthopedic evaluation most recently this afternoon in clinic by Dr. Proctor who performed a steroid intra-articular injection patient has continued pain and is holding knee in partial flexion, patient is afebrile nontoxic, no new trauma, is able to ambulate however knee is most comfortable in a partially flexed position, no appreciable effusion no induration no erythema no warmth no laxity, soft compartments sensate extremity. No evidence of fracture or dislocation. No evidence of infection. I reviewed Dr. Proctor's note and he has recommended close follow-up at [facility] for a second opinion. I counseled patient at length regarding the unlikelihood that I would be able to fix and her diagnosis the root cause of her knee pain given her extensive recent evaluation and exam findings today. Patient is most concerned about obtaining analgesia to be able to sleep. I will consider adding cyclobenzaprine for muscle relaxation to be used as needed at nighttime. I have encouraged her to follow-up closely with the [facility] referral. HPI General Date/Time Provider Initiated Documentation: 02/28/23 14:46 . HPI Narrative: 47-year-old female presents after remote right knee injury likely meniscal in nature, followed by orthopedic team, underwent extensive imaging and evaluation over the past couple of weeks, received an in office cortisone injection performed by Dr. Proctor this afternoon, has had continued pain and locking of her knee, is able to bear weight and ambulate is able to straighten the knee if assisted. No fevers no chills no new injuries. Patient feels better when she is performing martial arts Related Data Home Medications Medication Instructions Recorded Confirmed albuterol sulfate 90 mcg/actuation 2 inh inhalation DAILY PRN 01/23/20 01/31/23 aerosol inhaler (ProAir HFA) epinephrine 0.3 mg/0.3 mL 0.3 ml IM ONCE PRN 05/04/20 01/31/23 injection, auto-injector sumatriptan succinate 50 mg tablet 50 mg PO PRN PRN 05/28/21 01/31/23 (Imitrex) spironolactone 50 mg tablet 50 mg PO BID 05/25/22 01/31/23 cyclobenzaprine 5 mg tablet 5 mg PO QHS PRN #10 tabs 02/28/23 Previous Rx's Medication Instructions Recorded cyclobenzaprine 5 mg tablet 5 mg PO QHS PRN #10 tabs 02/28/23 Allergies Allergy/AdvReac Type Severity Reaction Status Date / Time acetaminophen Allergy Severe Hives, Verified 02/28/23 09:20 difficulty breathing clindamycin Allergy Severe Hives and Verified 02/28/23 09:20 diffficulty breathing sertraline Allergy Unknown Verified 02/28/23 09:20 General Stated Complaint: Orthopedic KAT: 4 Review of Systems Narrative: Review of Systems Constitutional: negative Eyes: negative ENT: negative Cardiovascular: negative Respiratory: negative Gastrointestinal: negative : negative Musculoskeletal: Knee pain Skin: negative Neurologic: negative Psych: negative PFSH All Active Problems (Updated 02/28/23 @ 15:37 by Jacek Vincent MD) Knee pain (Acute) Internal derangement of right knee (Acute) Reactive airway disease (Acute) Pelvic pain (Acute) Vaginal bleeding (Acute) Chest pain (Acute) Screen for STD (sexually transmitted disease) (Acute) Tendinitis of left elbow (Acute) Contusion of left elbow (Acute) Lactating adenoma of breast (Acute 01/11/17) Severe dysplasia of cervix (NIKA III) (Acute 01/11/17) Left knee pain (Chronic) Spontaneous pneumothorax (Acute) left side Medical History (Updated 02/28/23 @ 15:37 by Jacek Vincent MD) Balbuena's cyst of knee Depression with anxiety History of tobacco use Keloid scar of skin Lactating adenoma Melasma Migraine Surgical History (Updated 07/27/22 @ 10:46 by SHERIF Palacios) Biopsy of breast Status post surgical removal of both fallopian tubes Synovial plica of right knee S/P arthroscopic excision: 07/15/2022 Social History Smoking/Tobacco Use Status: Former Tobacco Use Quit Date: 07/10/09 Smoking risk assessment performed?: Yes Alcohol Intake: current Alcohol Intake frequency: a few times a week Alcohol type: beer and wine Drug use: Occasionally Substance use type: marijuana Details: t-1; 2xmonth at most per patient Household members: children Housing: house Number of Children: 2 Current gender identity: female What is your relationship status?: Panel score (0-1 are the most socially isolated patients): 0 Do you feel safe at home: Yes Do you feel safe in your relationship?: Yes Exam Narrative Exam Narrative: Physical Examination General: alert, awake, cooperative, resting comfortably, no acute distress Extremities: Right lower extremity held in partial flexion at knee, able to be passively extended, no appreciable effusion or laxity, no erythema or induration no warmth, soft compartments sensate well-perfused extremity Course Vital Signs Vital signs: Vital Signs Temperature 36.8 C 02/28/23 12:06 Pulse 70 02/28/23 12:06 Respiratory Rate 18 02/28/23 12:06 Blood Pressure 123/78 02/28/23 12:06 Pulse Oximetry 98 02/28/23 12:06 Temperature 36.8 C 02/28/23 12:06 Temperature Source Oral 02/28/23 12:06 Pulse 70 02/28/23 12:06 Respiratory Rate 18 02/28/23 12:06 Respiratory Effort Normal, Non-Labored 02/28/23 14:56 Blood Pressure 123/78 02/28/23 12:06 Blood Pressure Position Sitting 02/28/23 12:06 Pulse Oximetry 98 02/28/23 12:06 Oxygen Delivery Method Room Air 02/28/23 12:06 Oxygen Flow Rate 0 02/28/23 12:06 Pain Level 10 02/28/23 12:06
[2023-02-28] MEDS: Ketorolac 10 MG TAB PO (15:33)
== END 2023-02-28 15:50 | disposition home or self-care (01) ==
PROVIDERS: Emergency Provider Emergency Medicine; PCP Nurse Practitioner Family
DX: M25.561 Pain in right knee (principal); G89.18 Other acute postprocedural pain; Z87.891 Personal history of nicotine dependence
CPT/HCPCS: 99282

== ENCOUNTER 2024-11-13 13:20 | Emergency (ER) | payer MEDICAID, SELFPAY ==
[2024-11-13] VITALS (22 sets, daily range): BP systolic 124–149; BP diastolic 90–99; PULSE 53–76; RESP 13–24; TEMP 36.8; O2SAT 98–100
--- NOTE | 2024-11-13 13:15 | RT.EKG_ITS ---
APPROVED REPORT Exam: Resting ECG Reason for Exam: Possible CVA/TIA Patient Location: E HR:60 bpm ECG Measurements Heart Rate 60 AXIS IL 149 P 62 QRSd 88 QRS 76 QT 383 T 53 QTc 381 Conclusion Sinus rhythm...normal P axis, V-rate 60- 99
--- NOTE | 2024-11-13 13:30 | DI.CT_ITS ---
Exam(s) CT BRAIN NECK CTA EXAM: CT BRAIN NECK CTA CLINICAL HISTORY: one month, word finding issues, fall with headstri. TECHNIQUE: Imaging Protocol: Axial CT angiography was performed with multi-slice acquisition and mu lti-planar and MIP reconstructions. CONTRAST MATERIAL: Intravenous: Omnipaque 350 Contrast volume:100 ml COMPARISON: No exams were available for comparison FINDINGS: CT Head W/O and W contrast: Ventricles and Extra axial spaces: Normal in size and morphology for the patient's age. Hemorrhage: None. Cerebral parenchyma: No evidence of acute infarct or mass. Midline shift: None. Brainstem/Cerebellum: No acute findings.. Calvarium: Normal. Visualized Paranasal sinuses/Mastoids: Clear. Soft Tissues: Unremarkable. Enhancement: Normal. Venous sinuses are patent. CTA Brain W: Internal Carotid Arteries: Right: No aneurysm, occlusion or significant stenosis. Left: No aneurysm, occlusion or significant stenosis. Middle Cerebral Arteries: Right: No aneurysm, occlusion or significant stenosis. Left: No aneurysm, occlusion or significant stenosis. Anterior Cerebral Arteries: Right: No aneurysm, occlusion or significant stenosis. Left: No aneurysm, occlusion or significant stenosis. Posterior cerebral Arteries: Right: No aneurysm, occlusion or significant stenosis. Left: No aneurysm, occlusion or significant stenosis. Vertebral Arteries: Right: No aneurysm, occlusion or significant stenosis. Left: No aneurysm, occlusion or significant stenosis. Basilar Artery: No aneurysm, occlusion or significant stenosis. CTA Neck W: Common Carotid: Right: No dissection, occlusion or significant stenosis. Left: No dissection, occlusion or significant stenosis. External Carotid: Right: No dissection, occlusion or significant stenosis. Left: No dissection, occlusion or significant stenosis. Internal Carotid: Right: No dissection, occlusion or significant stenosis. Left: No dissection, occlusion or significant stenosis. Vertebral Artery: Right: No dissection, occlusion or significant stenosis. Left: No dissection, occlusion or significant stenosis. Lung Apices: No acute findings. Bones: No acute abnormality. Soft Tissues: Normal. IMPRESSION: 1. CTA brain: Normal CTA examination of the [place]. 2. Head CT: No acute abnormality. 3. CTA neck: No evidence of occlusion, significant stenosis or dissection. RADIATION DOSE DELIVERED: 2,361.07mGy.cm Total DLP DATA REPOSITORY: All CT scans at this facility are submitted to the National Radiology Data Registry (NRDR) Dose Index Registry (DIR) with the [employer] ([employer]). RADIATION OPTIMIZATION: All CT scans at this facility use at least one of these dose optimization te chniques: automated exposure control; mA and/or kV adjustment per patient size (includes targeted exa ms where dose is matched to clinical indication); or iterative reconstruction.
--- NOTE | 2024-11-13 13:30 | DI.RAD_ITS ---
Exam(s) XR CHEST 2V PA LATERAL EXAM: XR CHEST 2V PA LATERAL CLINICAL HISTORY: possible syncope TECHNIQUE: 2D digital imaging was performed. Two views. COMPARISON: CR XR CHEST 2V PA LATERAL from 05/28/2021 FINDINGS: HEART: Normal size. Aorta: Not dilated. PULMONARY VASCULATURE: Normal. MEDIASTINUM: Unremarkable. LUNGS: Clear. PLEURAL SPACE: No pleural effusion or pneumothorax. BONE:Unremarkable for age. SOFT TISSUES: Unremarkable. IMPRESSION: No acute abnormality. DATA REPOSITORY: RADIATION DOSE DELIVERED:
--- NOTE | 2024-11-13 13:46 | ED.GENADUL_ITS ---
Discharge Plan Disposition Patient Disposition: Home Condition: Stable Discharge Details Clinical Impression: Migraine syndrome Primary Care Provider: Jeannine Fountain ED Provider: Neno Shay Home Meds and New Rx's Prescriptions: Continued spironolactone 50 mg tablet 50 mg PO DAILY albuterol sulfate [ProAir HFA] 90 mcg/actuation HFA aerosol inhaler 2 inh INHALATION DAILY PRN Patient Comments: INHALE ONE TO TWO PUFFS BY MOUTH EVERY 4 TO 6 HOURS NEEDED FOR WHEEZING epinephrine 0.3 mg/0.3 mL auto-injector 0.3 ml IM ONCE PRN Patient Comments: INJECT 0.3ML ONE TIME PER DAY NEEDED cyclobenzaprine 5 mg tablet 5 mg PO QHS PRNQty: 10 0RF sumatriptan succinate [Imitrex] 50 mg tablet 50 mg PO PRN PRN Discharge Instructions Instructions: Headache, Adult ED Additional Instructions: You were seen in the emergency department for your various symptoms of a likely complex migraine, there is no stroke seen on your head CT, your neuroexam is no rmal, your cardiac workup is negative and there is no major electrolyte abnormalities or signs of infection on your laboratory studies. Please talk with your primary care provider and seek a referral to neurology for complex migraine issues otherwise take Tylenol and ibuprofen and your sumatriptan, please return for any motor weakness or deficit, chest pain, further episodes of syncope or other emergent concern Referrals: Jeannine Fountain [Primary Care Provider] - Discharge Data Discharge Date/Time-TO BE ENTERED AT DEPARTURE: 11/13/24 15:37 HPI General Date/Time Provider Initiated Documentation: 11/13/24 13:20 . HPI Narrative: 39 year-old female presents to ED today by POV/ambulating with her boyfriend with a chief complaint of feeling off after a migraine for days to weeks, two days ago she woke up on the floor with a small bump to her R parietal head, with blood in her ear- states she is having word finding difficulties for 4 weeks. Quality described as headaches, abnormal perception of time, speech problems- really having to focus to say words correctly, no radiation to vision loss, visual field deficits- states difficulty with far vision, denies chest pain, shortness of breath, nausea/vomiting, unilateral weakness/tingling/numbness. Severity is described as unable to quantify. Palliating factors include sumatriptan for migraines with some relief. Provoking factors include nothing specific. Patient not anticoagulated. Related Data Home Medications ?Medication ?Instructions ?Recorded ?Confirmed albuterol sulfate 90 mcg/actuation 2 inh inhalation DAILY PRN 01/23/20 11/13/24 aerosol inhaler (ProAir HFA) epinephrine 0.3 mg/0.3 mL 0.3 ml IM ONCE PRN 05/04/20 11/13/24 injection, auto-injector sumatriptan succinate 50 mg tablet 50 mg PO PRN PRN 05/28/21 11/13/24 (Imitrex) cyclobenzaprine 5 mg tablet 5 mg PO QHS PRN #10 tabs 02/28/23 11/13/24 spironolactone 50 mg tablet 50 mg PO DAILY 03/08/23 11/13/24 Previous Rx's ?Medication ?Instructions ?Recorded cyclobenzaprine 5 mg tablet 5 mg PO QHS PRN #10 tabs 02/28/23 Allergies Allergy/AdvReac Type Severity Reaction Status Date / Time acetaminophen Allergy Severe Hives, Verified 03/08/23 14:05 difficulty breathing clindamycin Allergy Severe Hives and Verified 03/08/23 14:05 diffficulty breathing sertraline Allergy Unknown Verified 03/08/23 14:05 General Stated Complaint: AMS/LOC KAT: 2 Review of Systems All systems reviewed & are unremarkable except as noted in HPI and below Exam Narrative Exam Narrative: GENERAL APPEARANCE: Well-nourished, non-toxic, awake and alert, atraumatic, no acute distress. SKIN: Warm, pink, dry, intact, without rashes/lesions/ulcerations. HEAD: Normocephalic, atraumatic, normal hair distribution for gender/age. EYES: Normal conjunctiva, no exudates on lids/lashes. ENT: Nares patent, no circumoral cyanosis, no facial swelling NECK: Supple, trachea midline, painless cervical ROM. LUNGS/CHEST: Lungs CTA bilaterally -no rhonchi/rales/wheezes diffusely, non- labored respirations, normal A/P diameter, symmetrical expansion, no chest wall deformity HEART (CV/PV): Regular rate and rhythm without murmur, no peripheral edema, no JVD, no carotid bruit bilaterally. ABDOMEN: Soft, non-distended, no guarding, no tenderness. MSK: Normal ROM, no swelling/deformity to bilateral UEs or LEs, moving all extremities without weakness, no cyanosis, spine midline without tenderness, normal curvature. NEURO: Mental Status AAOx4 - alert to person, place, time, events No facial droop, no forehead involvement. Motor: No focal weakness - strength 5/5 in bilateral UEs and LEs, proximal and distal, symmetric. Sensory: sensation intact to light touch globally. Gait normal: patient ambulated without ataxia into ED room. PSYCH: euthymic, cooperative, pleasant, appropriate speech Course Vital Signs Vital signs: Vital Signs Temperature 36.8 C 11/13/24 13:23 Pulse 71 11/13/24 13:23 Respiratory Rate 18 11/13/24 13:23 Blood Pressure 143/90 H 11/13/24 13:23 Pulse Oximetry 99 11/13/24 13:23 Temperature 36.8 C 11/13/24 13:23 Pulse 71 11/13/24 13:23 Respiratory Rate 18 11/13/24 13:30 Respiratory Effort Normal 11/13/24 13:30 Respiratory Depth Normal 11/13/24 13:30 Respiratory Pattern Normal 11/13/24 13:30 Blood Pressure 143/90 H 11/13/24 13:23 Pulse Oximetry 99 11/13/24 13:23 Medical Decision Making This dictation utilizes [id number] dictation software and may contain unedited grammatical errors. 39 year-old female presents to ED today by POV/ambulating with her boyfriend with a chief complaint of feeling off after a migraine for days to weeks, two days ago she woke up on the floor with a small bump to her R parietal head, with blood in her ear- states she is having word finding difficulties for 4 weeks. Quality described as headaches, abnormal perception of time, speech problems- really having to focus to say words correctly, no radiation to vision loss, visual field deficits- states difficulty with far vision, denies chest pain, shortness of breath, nausea/vomiting, unilateral weakness/tingling/numbness. Severity is described as unable to quantify. Palliating factors include sumatriptan for migraines with some relief. Provoking factors include nothing specific. Patients' medical history: Migraine, anxiety, reactive airway disease, severe dysplasia of cervix. Family and social history: Endorses THC use. Pertinent exam findings / vital signs include neuro intact, minor abrasion in right ear not bleeding and well-healed, benign cardiopulmonary exam, benign abdomen. Differential / pathologies of concern include anxiety, complex migraine, unlikely ICH or CVA, malignancy, syncope. Diagnostic studies of: -CBC, CMP, magnesium, TSH, alcohol level, serial troponins, urinalysis, UDS, EKG, x-ray chest, CTA brain and neck, tick and Lyme panel. - CBC shows no leukocytosis, no anemia - CMP is without any abnormality - Troponin negative - TSH within normal limits - Alcohol level negative - EKG normal sinus rhythm with normal intervals, no ischemic changes - X-ray chest no acute pathology - CTA of the brain and neck shows no acute stroke or other pathology Interventions of: -None. ED Course/Assessment/Plan: 39-year-old female who is highly anxious presents to the ED for headache since Monday, blood from right ear and hard time finding words, states it takes her a couple times pronouncing words to get it right, patient has history of migraines taking sumatriptan. CTA of the brain and neck is negative, serial troponins negative, there is no evidence of infection or anemia, CMP shows no electrolyte abnormality, chest x-ray is normal, patient states she possibly got bit by a tick and the tick panel is pending otherwise patient has presentation of complex migraine and I provided reassurance that this is not any stroke or cardiac pathology from her possible syncope. Findings not consistent with ICH, stroke, ACS, electrolyte abnormality, malignancy of head. Disposition of Migraine Syndrome. Patient verbalized understanding of the plan and return to ED criteria and engaged in shared decision making. Medical Records Medical records reviewed: Yes I reviewed the patient's medical records. Imaging Data Radiologic Study: Attestation: I personally reviewed and interpreted this imaging study as follows: Imaging: X-Ray Radiologist's impression: EXAM: XR CHEST 2V PA LATERAL CLINICAL HISTORY: possible syncope TECHNIQUE: 2D digital imaging was performed. Two views. COMPARISON: CR XR CHEST 2V PA LATERAL from 05/28/2021 FINDINGS: HEART: Normal size. Aorta: Not dilated. PULMONARY VASCULATURE: Normal. MEDIASTINUM: Unremarkable. LUNGS: Clear. PLEURAL SPACE: No pleural effusion or pneumothorax. BONE:Unremarkable for age. SOFT TISSUES: Unremarkable. IMPRESSION: No acute abnormality. Radiologic Study #2: Attestation: I personally reviewed and interpreted this imaging study as follows: Imaging: CT Scan Radiologist's impression: EXAM: CT BRAIN NECK CTA CLINICAL HISTORY: one month, word finding issues, fall with headstri. TECHNIQUE: Imaging Protocol: Axial CT angiography was performed with multi- slice acquisition and multi-planar and MIP reconstructions. CONTRAST MATERIAL: Intravenous: Omnipaque 350 Contrast volume:100 ml COMPARISON: No exams were available for comparison FINDINGS: CT Head W/O and W contrast: Ventricles and Extra axial spaces: Normal in size and morphology for the patient's age. Hemorrhage: None. Cerebral parenchyma: No evidence of acute infarct or mass. Midline shift: None. Brainstem/Cerebellum: No acute findings.. Calvarium: Normal. Visualized Paranasal sinuses/Mastoids: Clear. Soft Tissues: Unremarkable. Enhancement: Normal. Venous sinuses are patent. CTA Brain W: Internal Carotid Arteries: Right: No aneurysm, occlusion or significant stenosis. Left: No aneurysm, occlusion or significant stenosis. Middle Cerebral Arteries: Right: No aneurysm, occlusion or significant stenosis. Left: No aneurysm, occlusion or significant stenosis. Anterior Cerebral Arteries: Right: No aneurysm, occlusion or significant stenosis. Left: No aneurysm, occlusion or significant stenosis. Posterior cerebral Arteries: Right: No aneurysm, occlusion or significant stenosis. Left: No aneurysm, occlusion or significant stenosis. Vertebral Arteries: Right: No aneurysm, occlusion or significant stenosis. Left: No aneurysm, occlusion or significant stenosis. Basilar Artery: No aneurysm, occlusion or significant stenosis. CTA Neck W: Common Carotid: Right: No dissection, occlusion or significant stenosis. Left: No dissection, occlusion or significant stenosis. External Carotid: Right: No dissection, occlusion or significant stenosis. Left: No dissection, occlusion or significant stenosis. Internal Carotid: Right: No dissection, occlusion or significant stenosis. Left: No dissection, occlusion or significant stenosis. Vertebral Artery: Right: No dissection, occlusion or significant stenosis. Left: No dissection, occlusion or significant stenosis. Lung Apices: No acute findings. Bones: No acute abnormality. Soft Tissues: Normal. IMPRESSION: 1. CTA brain: Normal CTA examination of the [place]. 2. Head CT: No acute abnormality. 3. CTA neck: No evidence of occlusion, significant stenosis or dissection. Lab Data Lab results reviewed: Yes I reviewed the patient's lab results. Labs: Laboratory Tests Range/Units 11/13/24 13:30 WBC (4.4-10.8) 10^3/uL 7.05 RBC (3.93-5.22) 10^6/uL 4.81 Hgb (11.2-15.7) g/dL 14.7 Hct (36.0-46.0) % 42.4 MCV (80-95) fL 88 MCH (27.0-33.0) pg 30.6 MCHC (32.0-36.0) % 34.7 RDW (11.7-14.6) % 11.9 Plt Count (130-400) 10^3/uL 292 MPV (8.0-11.0) fL 9.1 Immature Gran % % 0.3 Neutrophils % % 66.4 Lymphocytes % % 27.5 Monocytes % % 5.1 Eosinophils % % 0.1 Basophils % % 0.6 Nucleated RBC % (0.0-0.3) % 0.0 Absolute Neutrophils (1.2-6.7) 10^3/uL 4.68 Absolute Lymphocytes (1.2-3.4) 10^3/uL 1.94 Absolute Monocytes (0.1-0.8) 10^3/uL 0.36 Absolute Eosinophils (0.0-0.7) 10^3/uL 0.01 Absolute Basophils (0.0-0.2) 10^3/uL 0.04 Sodium (136-145) mmol/L 141 Potassium (3.5-5.1) mmol/L 3.9 Chloride (98-107) mmol/L 103 Carbon Dioxide (21.0-32.0) mmol/L 30.8 Anion Gap (3-11) mmol/L 7.2 BUN (7-18) mg/dL 10 Creatinine (0.55-1.02) mg/dL 1.0 Est GFR (CKD-EPI 2020) (mL/min/1.73m2) 72.58 Glucose (74-106) mg/dL 95 Calcium (8.5-10.1) mg/dL 9.5 Magnesium (1.8-2.4) mg/dL 2.0 Total Bilirubin (0.2-1.0) mg/dL 0.4 AST (15-37) U/L 20 ALT (14-59) U/L 17 Alkaline Phosphatase (46-116) U/L 56 Troponin I (<or=51) ng/L 5 Total Protein (6.4-8.2) g/dL 7.7 Albumin (3.4-5.0) g/dL 3.9 TSH (0.36-3.74) uIU/mL 0.52 Ethyl Alcohol (<10) mg/dL < 3.0 Quality:SDOH Health Related Social Needs: No Data to Display PFSH All Active Problems (Updated 11/13/24 @ 15:00 by SHERIF Malone) Migraine syndrome (Acute) Pain in joint, foot, left (Acute) Metatarsophalangeal (joint) sprain (Acute) Migraine (Chronic) Depression with anxiety (Acute) Smoker (Acute) Internal derangement of right knee (Acute) Reactive airway disease (Acute) Lactating adenoma of breast (Acute 01/11/17) Severe dysplasia of cervix (NIKA III) (Acute 01/11/17) Left knee pain (Chronic) Spontaneous pneumothorax (Acute) left side Medical History Balbuena's cyst of knee Chest pain Contusion of left elbow History of tobacco use Keloid scar of skin Knee pain Lactating adenoma Melasma Pelvic pain Screen for STD (sexually transmitted disease) Tendinitis of left elbow Vaginal bleeding Surgical History Biopsy of breast Status post surgical removal of both fallopian tubes Synovial plica of right knee S/P arthroscopic excision: 07/15/2022 Social History Smoking/Tobacco Use Status: Former Tobacco Use Quit Date: 07/10/09 Smoking risk assessment performed?: Yes Alcohol Intake: current Alcohol Intake frequency: a few times a month Alcohol type: beer and wine Drug use: Occasionally Substance use type: marijuana Household members: children Housing: house Number of Children: 2 Current gender identity: female What is your relationship status?: Panel score (0-1 are the most socially isolated patients): 0 Do you feel safe at home: Yes Do you feel safe in your relationship?: Yes
[2024-11-13 13:51] LABS: Abs Immature Grans 0.02 10^3/uL (0.0-0.06); Absolute Basophil Count 0.04 10^3/uL (0.0-0.2); Absolute Eosinophil Count 0.01 10^3/uL (0.0-0.7); Absolute Lymphocyte Count 1.94 10^3/uL (1.2-3.4); Absolute Monocyte Count 0.36 10^3/uL (0.1-0.8); Absolute Neutrophil Count 4.68 10^3/uL (1.2-6.7); Basophils % 0.6 %; Eosinophils % 0.1 %; HCT 42.4 % (36.0-46.0); HGB 14.7 g/dL (11.2-15.7); Immature Grans % 0.3 %; Lymphocytes % 27.5 %; MCH 30.6 pg (27.0-33.0); MCHC 34.7 % (32.0-36.0); MCV 88 fL (80-95); MPV 9.1 fL (8.0-11.0); Monocytes % 5.1 %; Neutrophils % 66.4 %; Platelet Count 292 10^3/uL (130-400); RBC 4.81 10^6/uL (3.93-5.22); RDW 11.9 % (11.7-14.6); RDW-SD 38.5 fL; WBC 7.05 10^3/uL (4.4-10.8)
[2024-11-13 14:17] LABS: ALT 17 U/L (14-59); AST 20 U/L (15-37); Albumin 3.9 g/dL (3.4-5.0); Alkaline Phosphatase 56 U/L (46-116); Anion Gap 7.2 mmol/L (3-11); BUN 10 mg/dL (7-18); Bilirubin, Total 0.4 mg/dL (0.2-1.0); CO2 30.8 mmol/L (21.0-32.0); Calcium 9.5 mg/dL (8.5-10.1); Chloride 103 mmol/L (98-107); Estimated GFR 72.58 (mL/min/1.73m2); Glucose 95 mg/dL (74-106); Potassium 3.9 mmol/L (3.5-5.1); Sodium 141 mmol/L (136-145); TSH (W/Ref FT4) 0.52 uIU/mL (0.36-3.74); Total Protein 7.7 g/dL (6.4-8.2); Troponin I 5 ng/L (<or=51)
[2024-11-13 14:20] LABS: ETHANOL BLOOD < 3.0 mg/dL (<10)
[2024-11-13] MEDS: Normal Saline - Diluent 50 ML VIAL IJ (14:58)
[2024-11-13] MEDS: Omnipaque 350 MG/ML 100 ML BTL IJ (14:59)
[2024-11-13 17:25] LABS: Troponin I 4 ng/L (<or=51)
[2024-11-15 10:10] LABS: Lyme Ab w Rflx to Lyme Confirm Negative (Negative)
[2024-11-17 15:00] LABS: Anaplasma phagocytophilum Negative (Negative); B. miyamotoi PCR Negative (Negative); Babesia divergens/MO-1 Negative (Negative); Babesia duncani Negative (Negative); Babesia microti Negative (Negative); Ehrlichia chaffeensis Negative (Negative); Ehrlichia ewingii/canis Negative (Negative); Ehrlichia muris eauclairensis Negative (Negative)
== END 2024-11-13 15:37 | disposition home or self-care (01) ==
LOC: ER 16:34
PROVIDERS: Emergency Provider Physician Assistant; PCP Nurse Practitioner Family
DX: G43.909 Migraine, unspecified, not intractable, without status migrainosus (principal); R47.89 Other speech disturbances
CPT/HCPCS: 99285 ×2; 36416; 82962; 70496; 70498; 80053; 87798; 93005; 71046; 80320; 83735; 84443; 84484; 85025; 86618; 93010; J3490